=== PATIENT | female | born 1985 | race American Indian/Alaskan Native ===

== ENCOUNTER 2019-03-14 15:18 | Emergency (ER) | payer OTHER ==
--- NOTE | 2019-03-14 16:13 | Emergency Department Report ---
Blank Doc - Documentation Documentation: Abdominal pain with nausea and vomiting x2 days Positive bloody diarrhea x 3 t aubrey. Vomity 8 times today. Pain located mid abdomen. LMP 03/07/2019. Followed by Dr. Bonilla [facility]. No medication. reports QUEZADA . No other symptoms. No sob No CP No urinary burning, frequency or urgency. No vaginal discharge. BP 209/108 and takes lisinopril and HCTZ . Took today Labs, repeat BP
[2019-03-14 16:43] LABS: Basophils # (Auto) 0.1 K/mm3 (0.0-0.1); Basophils % (Auto) 0.4 % (0.0-1.8); Eosinophils % (Auto) 0.2 % (0.0-4.3); Hematocrit 35.1 % (30.3-42.9); Hemoglobin 11.4 gm/dl (10.1-14.3); Lymphocytes # (Auto) 1.3 K/mm3 (1.2-5.4); Lymphocytes % (Auto) 9.4 % (13.4-35.0); Mean Corpuscular HGB Conc 32 % (30-34); Mean Corpuscular Volume 76 fl (79-97); Monocytes # (Auto) 0.4 K/mm3 (0.0-0.8); Monocytes % (Auto) 3.3 % (0.0-7.3); Platelet Count 299 K/mm3 (140-440); Red Cell Distribution Width 18.6 % (13.2-15.2)
[2019-03-14 17:02] LABS: Alanine Aminotransferase 22 units/L (7-56); Albumin 4.3 g/dL (3.9-5); BUN/Creatinine Ratio 10; Blood Urea Nitrogen 6 mg/dL (7-17); Calcium 8.8 mg/dL (8.4-10.2); Hemolysis Index 3
[2019-03-14 17:08] LABS: HCG Qualitative,Urine Negative (Negative)
[2019-03-14 17:13] LABS: Bilirubin,Urine NEG (Negative); Blood,Urine NEG (Negative); Color,Urine Yellow (Yellow); Mucus,Urine 3+ /HPF; Protein,Urine <15 mg/dL mg/dL (Negative); Urobilinogen,Urine < 2.0 mg/dL (<2.0)
[2019-03-14] MEDS ORDERED: ZOFRAN ONE (17:41)
[2019-03-14] MEDS ORDERED: MORPHINE ONE (17:41)
[2019-03-14] MEDS ORDERED: MORPHINE IV ONE (17:52)
[2019-03-14] MEDS ORDERED: ZOFRAN IV ONE ×2 (17:52→20:19)
[2019-03-14] MEDS ORDERED: NACL 0.9% 1000 ML 1,000 ML IV ONE (18:07)
--- NOTE | 2019-03-14 18:11 | Emergency Department Report ---
ED Abdominal Pain HPI - General Chief Complaint: Abdominal Pain Stated Complaint: NAUSEA/VOMITING Time Seen by Provider: 03/14/19 16:07 Source: patient Mode of arrival: Ambulatory Limitations: No Limitations - History of Present Illness Initial Comments: Patient is a 33-year-old female who presents to the emergency room with complaints of upper abdominal pain that began 2 days ago. She states she has associated nausea, vomiting, diarrhea. She states she hasn't been able to tolerate solids or liquids. She denies any urinary symptoms or fever. She states she has noticed bright red blood when she wipes. States she has a history of hemorrhoids. She has a past medical history of Crohn's and states she has not taken her medications in 2 weeks. States her GI doctor is Dr. Bonilla but has not seen her doctor in 2 months. she has a past medical history of HTN states she took lisinopril, HCTZ, carvedilol today. Last menstrual cycle March 07. Severity scale (0 -10): 8 - Related Data Previous Rx's Medication Instructions Recorded Last Taken Type Hydrocortisone [Anucort-HC SUPPOS] 25 mg RC BID #10 supp.rect 03/14/19 Unknown Rx Hydrocortisone [Anusol-Hc 2.5% TOP 1 applicatio RC BID #1 cream..g. 03/14/19 Unknown Rx CREAM] Ondansetron [Zofran Odt] 4 mg PO Q8HR PRN #14 tab.rapdis 03/14/19 Unknown Rx Prednisone [predniSONE 10 mg 10 mg PO .TAPER #1 tab.ds.pk 03/14/19 Unknown Rx (6-Day Pack, 21 Tabs)] metroNIDAZOLE [Flagyl] 500 mg PO BID 10 Days #20 tab 03/14/19 Unknown Rx traMADol [Ultram 50 MG tab] 50 mg PO Q6HR PRN #10 tablet 03/14/19 Unknown Rx Allergies Allergy/AdvReac Type Severity Reaction Status Date / Time No Known Allergies Allergy Verified 03/14/19 15:21 ED Review of Systems ROS: Stated complaint: NAUSEA/VOMITING Other details as noted in HPI Comment: All other systems reviewed and negative ED Past Medical Hx - Past Medical History Previous Medical History?: Yes Hx Hypertension: Yes Additional medical history: crohns - Surgical History Past Surgical History?: No - Social History Smoking Status: Never Smoker - Medications Home Medications: Home Medications Medication Instructions Recorded Confirmed Last Taken Type Hydrocortisone [Anucort-HC SUPPOS] 25 mg RC BID #10 supp.rect 03/14/19 Unknown Rx Hydrocortisone [Anusol-Hc 2.5% TOP 1 applicatio RC BID #1 cream..g. 03/14/19 Unknown Rx CREAM] Ondansetron [Zofran Odt] 4 mg PO Q8HR PRN #14 tab.rapdis 03/14/19 Unknown Rx Prednisone [predniSONE 10 mg 10 mg PO .TAPER #1 tab.ds.pk 03/14/19 Unknown Rx (6-Day Pack, 21 Tabs)] metroNIDAZOLE [Flagyl] 500 mg PO BID 10 Days #20 tab 03/14/19 Unknown Rx traMADol [Ultram 50 MG tab] 50 mg PO Q6HR PRN #10 tablet 03/14/19 Unknown Rx ED Physical Exam - General Limitations: No Limitations General appearance: alert, in no apparent distress - Head Head exam: Present: atraumatic, normocephalic - Eye Eye exam: Present: normal appearance, PERRL - ENT ENT exam: Present: mucous membranes dry (mildly) - Respiratory Respiratory exam: Present: normal lung sounds bilaterally. Absent: respiratory distress, wheezes, rales, rhonchi, stridor, chest wall tenderness, accessory muscle use, decreased breath sounds, prolonged expiratory - Cardiovascular Cardiovascular Exam: Present: regular rate, normal rhythm, normal heart sounds. Absent: systolic murmur, diastolic murmur, rubs, gallop - GI/Abdominal GI/Abdominal exam: Present: soft, tenderness (generalized upper abdominal tenderness), normal bowel sounds. 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 Absent: mass, tenderness - Back Exam Back exam: Absent: CVA tenderness (R), CVA tenderness (L) - Neurological Exam Neurological exam: Present: alert, oriented X3 - Psychiatric Psychiatric exam: Present: normal affect, normal mood - Skin Skin exam: Present: warm, dry, intact ED Course Vital Signs 07/05/19 07/05/19 15:57 21:26 Temperature 98 F 98.1 F Pulse Rate 58 L 54 L Respiratory 22 18 Rate Blood Pressure 209/100 Blood Pressure 108/72 [Left] O2 Sat by Pulse 100 100 Oximetry ED Medical Decision Making - Lab Data Result diagrams: 03/14/19 16:22 03/14/19 16:22 - Radiology Data Radiology results: report reviewed CT abdomen pelvis w con INDICATION / CLINICAL INFORMATION: Abdominal pain with nausea and vomiting. TECHNIQUE: The patient received 100 cc Omnipaque [address] scans at this location are performed using CT dose reduction for ALARA by means of automated exposure control. COMPARISON: None available. FINDINGS: ABDOMEN: There is mild to moderate bowel wall and fold thickening involving the proximal to mid jejunum. These loops are slightly dilated. The patient vomited during the study. Delayed images demonstrate that these loops are more normal in appearance. The remainder of the small bowel is normal. I see no evidence of free air. The liver, spleen, gallbladder, bile ducts, pancreas, adrenal glands and kidneys are normal. The lung bases are clear. PELVIS: The distal ureters and urinary bladder are normal. The uterus and adnexal regions are unremarkable. A normal appendix is present and there is no evidence of diverticulitis. I do not stacy ntify a hernia. No osseous abnormality is seen. IMPRESSION: Abnormal appearance of the proximal jejunum on the initial scan which improves on delayed images after the patient vomited. The findings are probably related to enteritis. Signer Name: Raul Goode MD Signed: 03/14/2019 7:58 PM Workstation Name: [id number] Transcribed By: RT Dictated By: Raul Goode MD Electronically Authenticated By: Raul Goode MD Signed Date/Time: 03/14/191957 - Medical Decision Making Patient is a 33-year-old female who presents to the emergency room with complaints of upper abdominal pain that began 2 days ago. She states she has associated nausea, vomiting, diarrhea. She states she hasn't been able to tolerate solids or liquids. She denies any urinary symptoms or fever. She states she has noticed bright red blood when she wipes. States she has a history of hemorrhoids. She has a past medical history of Crohn's and states she has not taken her medications in 2 weeks. States her GI doctor is Dr. Bonilla but has not seen her doctor in 2 months. she has a past medical history of HTN states she took lisinopril, HCTZ, carvedilol today. Last menstrual cycle March 07. initial vitals with elevated blood pressure, repeat significantly improved. labs with elevated WBC at 13,000. UA is normal. on exam: generalized upper abd TTP, no guarding, no rebound, no peritoneal signs, normal bowel sounds. CT abd pelvis shows Abnormal appearance of the proximal jejunum on the initial scan which improves on delayed images after the patient vomited. The findings are probably related to enteritis. pt was able to tolerate liquid intake while in the ED. rectal exam with external hemorrhoid, no active bleed ing, hemoccult negative. H/H are normal. pt given prescriptions for flagyl, prednisone, zofran, tramadol, anusol. advised to please take medication as prescribed. Drink plenty of water and eat a bland diet. Do not drive or operate heavy machinery while taking pain medication. Follow-up with your GI doctor or the GI doctor listed below in the next 2-3 days. Follow up with a primary care doctor in the next 2-3 days and also discussed the elevation in your blood pressure. Return to the emergency room for any new or worsening symptoms. - Differential Diagnosis crohns flare, obstruction, fistula, colitis, enteritis Critical care attestation.: If time is entered above; I have spent that time in minutes in the direct care of this critically ill patient, excluding procedure time. ED Disposition Clinical Impression: Enteritis, Nausea vomiting and diarrhea Abdominal pain Qualifiers: Abdominal location: upper abdomen, unspecified Qualified Code(s): R10.10 - Upper abdominal pain, unspecified Hemorrhoid Qualifiers: Hemorrhoid type: unspecified Qualified Code(s): K64.9 - Unspecified hemorrhoids Disposition: DC-01 TO HOME OR SELFCARE Is pt being admited?: No Does the pt Need Aspirin: No Condition: Stable Instructions: Hemorrhoids (ED), Crohn Disease (ED), Abdominal Pain (ED) Additional Instructions: Please take medication as prescribed. Drink plenty of water and eat a bland diet. Do not drive or operate heavy machinery while taking pain medication. Follow-up with your GI doctor or the GI doctor listed below in the next 2-3 days. Follow up with a primary care doctor in the next 2-3 days and also discussed the elevation in your blood pressure. Return to the emergency room for any new or worsening symptoms. Prescriptions: Hydrocortisone [Anucort-HC SUPPOS] 25 mg RC BID #10 supp.rect Hydrocortisone [Anusol-Hc 2.5% TOP CREAM] 1 applicatio RC BID #1 cream..g. metroNIDAZOLE [Flagyl] 500 mg PO BID 10 Days #20 tab Prednisone [predniSONE 10 mg (6-Day Pack, 21 Tabs)] 10 mg PO .TAPER #1 tab.ds.pk traMADol [Ultram 50 MG tab] 50 mg PO Q6HR PRN #10 tablet PRN Reason: Pain , Severe (7-10) Ondansetron [Zofran Odt] 4 mg PO Q8HR PRN #14 tab.rapdis PRN Reason: Nausea And Vomiting Referrals: LEANNE GUERRERO MD [Primary Care Provider] - 2-3 Days [facility] [Provider Group] - 2-3 Days Time of Disposition: 20:23 Print Language: MOZAMBICAN
[2019-03-14] MEDS ORDERED: BENADRYL IV ONE (18:26)
[2019-03-14] MEDS ORDERED: REGLAN IV ONE (18:26)
[2019-03-14] MEDS ORDERED: REGLAN ONE (18:30)
[2019-03-14] MEDS ORDERED: BENADRYL ONE (18:30)
--- NOTE | 2019-03-14 20:02 | Cat Scan Report ---
CT abdomen pelvis w con INDICATION / CLINICAL INFORMATION: Abdominal pain with nausea and vomiting. TECHNIQUE: The patient received 100 cc Omnipaque [address] scans at this location are performed using CT dose reduction for ALARA by means of automated exposure control. COMPARISON: None available. FINDINGS: ABDOMEN: There is mild to moderate bowel wall and fold thickening involving the proximal to mid jejun um. These loops are slightly dilated. The patient vomited during the study. Delayed images demonstrat e that these loops are more normal in appearance. The remainder of the small bowel is normal. I see n o evidence of free air. The liver, spleen, gallbladder, bile ducts, pancreas, adrenal glands and kidn eys are normal. The lung bases are clear. PELVIS: The distal ureters and urinary bladder are normal. The uterus and adnexal regions are unremar kable. A normal appendix is present and there is no evidence of diverticulitis. I do not identify a h ernia. No osseous abnormality is seen. IMPRESSION: Abnormal appearance of the proximal jejunum on the initial scan which improves on delayed images after the patient vomited. The findings are probably related to enteritis. Signer Name: Raul Goode MD Signed: 03/14/2019 7:58 PM Workstation Name: [id number]
[2019-03-14 21:27] VITALS: BP 108/72
== END 2019-03-14 21:33 | disposition home or self-care (01) ==
LOC: ED 15:18
DX: K52.9 Noninfective gastroenteritis and colitis, unspecified (principal); K64.9 Unspecified hemorrhoids; I10 Essential (primary) hypertension
CPT/HCPCS: 36415; 74177; 80053; 81001; 81025; 82271; 83690; 85025; 96361; 96374; 96375; 96376; 99284; J1200; J2270; J2405; J2765; J7030; Q9967

== ENCOUNTER 2019-03-23 04:31 | Emergency (ER) | payer OTHER ==
[2019-03-23 04:37] VITALS: BP 172/101
[2019-03-23] MEDS ORDERED: TYLENOL PO ONE (05:39)
[2019-03-23] MEDS ORDERED: PYRIDIUM PO ONE (05:39)
--- NOTE | 2019-03-23 06:38 | Emergency Department Report ---
ED Female HPI - General Chief complaint: Urogenital-Female Stated complaint: BLOOD IN URINE/PAIN Source: patient Mode of arrival: Ambulatory Limitations: No Limitations - History of Present Illness Initial comments: Patient is a 32-year-old -[place] female with no past medical history who presents to the ED with complaint of acute onset persistent suprapubic pressure, dysuria, urinary frequency and urgency, hematuria, low back pain, nausea for the last 2 days, worse in the last 6 hours. Patient denies fever, chills, dizziness, diarrhea, vaginal bleeding, but no discharge, chest pain or shortness of breath. MD Complaint: dysuria, pelvic pain (pressure), other (Urinary urgency and frequency) -: Sudden, days(s) (2) Location: suprapubic Radiation: non-radiating Severity: severe Severity scale (0 -10): 7 Quality: cramping, dull, burning Consistency: constant Improves with: none Worsens with: urination Are you Now?: No Last Menstrual Period: 03/13/19 EDC: 12/18/19 Associated Symptoms: denies other symptoms, abdominal pain, nausea/vomiting, dysuria, hematuria. denies: vaginal discharge, vaginal bleeding, fever/chills, headaches, loss of appetite, rash, seizure, shortness of breath, syncope, weakn ess, other - Related Data Sexually active: Yes : 3 Para: 2 A: 1 Previous Rx's Medication Instructions Recorded Last Taken Type Hydrocortisone [Anucort-HC SUPPOS] 25 mg RC BID #10 supp.rect 03/14/19 Unknown Rx Hydrocortisone [Anusol-Hc 2.5% TOP 1 applicatio RC BID #1 cream..g. 03/14/19 Unknown Rx CREAM] Prednisone [predniSONE 10 mg 10 mg PO .TAPER #1 tab.ds.pk 03/14/19 Unknown Rx (6-Day Pack, 21 Tabs)] metroNIDAZOLE [Flagyl] 500 mg PO BID 10 Days #20 tab 03/14/19 Unknown Rx traMADol [Ultram 50 MG tab] 50 mg PO Q6HR PRN #10 tablet 03/14/19 Unknown Rx Ibuprofen [Motrin] 800 mg PO Q8HR PRN #20 tablet 03/23/19 Unknown Rx Ondansetron [Zofran ODT TAB] 4 mg PO Q6HR PRN #15 tab.rapdis 03/23/19 Unknown Rx Phenazopyridine [Pyridium] 200 mg PO Q8H PRN #21 tab 03/23/19 Unknown Rx cephALEXin [Keflex] 500 mg PO Q6HR #40 capsule 03/23/19 Unknown Rx Allergies Allergy/AdvReac Type Severity Reaction Status Date / Time No Known Allergies Allergy Verified 03/14/19 15:21 ED Review of Systems ROS: Stated complaint: BLOOD IN URINE/PAIN Other details as noted in HPI Constitutional: denies: chills, fever Eyes: denies: eye pain, eye discharge, vision change ENT: denies: ear pain, throat pain Respiratory: denies: cough, shortness of breath, wheezing Cardiovascular: denies: chest pain, palpitations Endocrine: no symptoms reported Gastrointestinal: abdominal pain, nausea, vomiting. denies: diarrhea Genitourinary: urgency, dysuria, frequency, hematuria. denies: discharge, abnormal menses, dyspareunia Musculoskeletal: back pain. denies: joint swelling, arthralgia Skin: denies: rash, lesions Neurological: denies: headache, weakness, paresthesias Psychiatric: denies: anxiety, depression Hematological/Lymphatic: denies: easy bleeding, easy bruising ED Past Medical Hx - Past Medical History Previous Medical History?: Yes Hx Hypertension: Yes Additional medical history: crohns - Surgical History Past Surgical History?: No - Social History Smoking Status: Current Every Day Smoker Substance Use Type: None - Medications Home Medications: Home Medications Medication Instructions Recorded Confirmed Last Taken Type Hydrocortisone [Anucort-HC SUPPOS] 25 mg RC BID #10 supp.rect 03/14/19 Unknown Rx Hydrocortisone [Anusol-Hc 2.5% TOP 1 applicatio RC BID #1 cream..g. 03/14/19 Unknown Rx CREAM] Prednisone [predniSONE 10 mg 10 mg PO .TAPER #1 tab.ds.pk 03/14/19 Unknown Rx (6-Day Pack, 21 Tabs)] metroNIDAZOLE [Flagyl] 500 mg PO BID 10 Days #20 tab 03/14/19 Unknown Rx traMADol [Ultram 50 MG tab] 50 mg PO Q6HR PRN #10 tablet 03/14/19 Unknown Rx Ibuprofen [Motrin] 800 mg PO Q8HR PRN #20 tablet 03/23/19 Unknown Rx Ondansetron [Zofran ODT TAB] 4 mg PO Q6HR PRN #15 tab.rapdis 03/23/19 Unknown Rx Phenazopyridine [Pyridium] 200 mg PO Q8H PRN #21 tab 03/23/19 Unknown Rx cephALEXin [Keflex] 500 mg PO Q6HR #40 capsule 03/23/19 Unknown Rx ED Physical Exam - General Limitations: No Limitations General appearance: alert, in no apparent distress - Head Head exam: Present: atraumatic, normocephalic, normal inspection - Eye Eye exam: Present: normal appearance, PERRL, EOMI. Absent: scleral icterus Pupils: Present: normal accommodation - ENT ENT exam: Present: normal exam, normal orophraynx, mucous membranes moist, TM's normal bilaterally, normal external ear exam - Neck Neck exam: Present: normal inspection, full ROM - Respiratory Respiratory exam: Present: normal lung sounds bilaterally. Absent: respiratory distress, wheezes, rales, chest wall tenderness, accessory muscle use, decreased breath sounds, prolonged expiratory - Cardiovascular Cardiovascular Exam: Present: regular rate, normal rhythm, normal heart sounds. Absent: systolic murmur, diastolic murmur, rubs, gallop - GI/Abdominal GI/Abdominal exam: Present: soft, normal bowel sounds. Absent: distended, tenderness, guarding, rebound, hyperactive bowel sounds, hypoactive bowel sounds, organomegaly - Rectal Rectal exam: Present: deferred - Extremities Exam Extremities exam: Present: normal inspection, full ROM, normal capillary refill - Back Exam Back exam: Present: normal inspection, full ROM. Absent: tenderness, CVA tenderness (R), CVA tenderness (L), muscle spasm - Neurological Exam Neurological exam: Present: alert, oriented X3, CN II-XII intact, normal gait, reflexes normal - Psychiatric Psychiatric exam: Present: normal affect, normal mood - Skin Skin exam: Present: warm, dry, intact, normal color. Absent: rash ED Course Vital Signs 03/23/19 03/23/19 03/23/19 04:32 04:34 06:05 Temperature 97.8 F 97.8 F Pulse Rate 92 H 94 H Respiratory 18 20 Rate Blood Pressure 172/101 172/101 O2 Sat by Pulse 100 Oximetry - Reevaluation(s) Reevaluation #1: 03/23/19 06:37 Patient is alert and oriented 3 and is not in any distress with normal vital signs. Urinalysis was ordered and patient treated for dysuria and pain. Urinalysis shows significant acute urinary tract infection with hematuria. Patient was treated in the ED and Rocephin 1 g intramuscular injection, and discharged home in antibiotics Keflex, and the medications and patient advised to follow-up with [facility]ESSEL INSPECTOR physician or primary care physician in 7-10 days for reevaluation. Patient otherwise return to the ED immediately if symptoms get worse. ED Medical Decision Making - Medical Decision Making Patient is alert and oriented 3 and is not in any distress with normal vital signs. Urinalysis was ordered and patient treated for dysuria and pain. Urinalysis shows significant acute urinary tract infection with hematuria. Patient was treated in the ED and Rocephin 1 g intramuscular injection, and discharged home in antibiotics Keflex, and the medications and patient advised to follow-up with PRESSURE VESSEL INSPECTOR physician or primary care physician in 7-10 days for reevaluation. Patient otherwise return to the ED immediately if symptoms get worse. - Differential Diagnosis acute UTI; Acuet PID, Kidney stones, Ovarian Cysts, Critical care attestation.: If time is entered above; I have spent that time in minutes in the direct care of this critically ill patient, excluding procedure time. ED Disposition Clinical Impression: Acute urinary tract infection Abdominal pain Qualifiers: Abdominal location: lower abdomen, unspecified Qualified Code(s): R10.30 - Lower abdominal pain, unspecified Disposition: - TO HOME OR SELFCARE Is pt being admited?: No Does the pt Need Aspirin: No Condition: Stable Instructions: Urinary Tract Infection in Women (ED), Abdominal Pain (ED) Additional Instructions: Take medications with food, drink plenty of fluids and follow-up with your primary care physician or PRESSURE VESSEL INSPECTOR physician in 7-10 days for reevaluation. Return to the ED immediately if symptoms get worse. Prescriptions: cephALEXin [Keflex] 500 mg PO Q6HR #40 capsule Ibuprofen [Motrin] 800 mg PO Q8HR PRN #20 tablet PRN Reason: Pain , Severe (7-10) Phenazopyridine [Pyridium] 200 mg PO Q8H PRN #21 tab PRN Reason: dysuria Ondansetron [Zofran ODT TAB] 4 mg PO Q6HR PRN #15 tab.rapdis PRN Reason: Nausea And Vomiting Referrals: [facility] [Outside] - 3-5 Days Time of Disposition: 06:39 Print Language: MARTINIQUAIS
[2019-03-23 06:52] LABS: Bilirubin,Urine NEG (Negative); Blood,Urine LG (Negative); Color,Urine Yellow (Yellow); Urobilinogen,Urine < 2.0 mg/dL (<2.0)
[2019-03-23 06:53] LABS: Bacteria,Urine 1+ /HPF (Negative)
[2019-03-23 06:55] LABS: HCG Qualitative,Urine Negative (Negative)
[2019-03-23 06:58] LABS: RBC,Urine > 182.0 /HPF (0.0-6.0); WBC,Urine > 182.0 /HPF (0.0-6.0)
[2019-03-23] MEDS ORDERED: XYLOCAINE 1% MPF 5 mL INFILTRATI ONE (06:59)
[2019-03-23] MEDS ORDERED: ROCEPHIN IM ONE (06:59)
== END 2019-03-23 07:37 | disposition home or self-care (01) ==
LOC: ED 04:31
DX: N39.0 Urinary tract infection, site not specified (principal); I10 Essential (primary) hypertension; F17.200 Nicotine dependence, unspecified, uncomplicated; Z87.19 Personal history of other diseases of the digestive system; Z79.899 Other long term (current) drug therapy
CPT/HCPCS: 81001; 81025; 96372; 99283; J0696

== ENCOUNTER 2019-08-04 13:38 | Inpatient (IN) | payer OTHER ==
[2019-08-04] MEDS ORDERED: ONDANSETRON 4 MG ODT TAB PO ONE (14:17)
--- NOTE | 2019-08-04 14:17 | Event Note ---
ED Screening Note ED Screening Note: PMHx Zurdo has a GI doctor at [facility] states that she N/V/D that began yesterday no fever LNMP: 08/02/19 no other PMHx no allergies to meds This initial assessment/diagnostic orders/clinical plan/treatment(s) is/are subject to change based on patients health status, clinical progression and re-assessment by fellow clinical providers in the ED. Further treatment and workup at subsequent clinical providers discretion. Patient/guardian urged not to elope from the ED as their condition may be serious if not clinically assessed and managed. Initial orders include: UA, labs
[2019-08-04] MEDS ORDERED: ONDANSETRON 4 MG ODT TAB ONE (14:20)
[2019-08-04] MEDS ORDERED: SODIUM CHLORIDE 0.9% 1000 ML 1,000 ML IV ONE ×2 (14:55→19:38)
[2019-08-04] MEDS ORDERED: ONDANSETRON 4 MG/2 ML INJ IV ONE ×2 (14:55→19:38)
[2019-08-04] MEDS ORDERED: MORPHINE 4 MG/1 ML INJ IV ONE (14:55)
[2019-08-04] MEDS ORDERED: methylPREDNISolone Sod Succinate 125 MG/2 ML INJ IV ONE (14:56)
[2019-08-04 15:09] LABS: Mucus,Urine FEW /HPF; WBC,Urine < 1.0 /HPF (0.0-6.0)
[2019-08-04 15:17] LABS: Color,Urine Yellow (Yellow)
[2019-08-04 15:18] LABS: Blood,Urine Moderate (Negative); PH,Urine 7.5 (5.0-7.0); Urobilinogen,Urine < 2.0 mg/dL (<2.0)
[2019-08-04 15:19] LABS: Ictotest,Urine Negative (Negative)
[2019-08-04 15:21] LABS: Alanine Aminotransferase 17 units/L (7-56); Albumin 4.7 g/dL (3.9-5); BUN/Creatinine Ratio 10; Blood Urea Nitrogen 6 mg/dL (7-17); Calcium 9.1 mg/dL (8.4-10.2); Hemolysis Index 2
--- NOTE | 2019-08-04 15:26 | Emergency Department Report ---
ED Abdominal Pain HPI - General Chief Complaint: Abdominal Pain Stated Complaint: VOMIT/CHROME DISEASE Time Seen by Provider: 08/04/19 14:15 Source: patient Mode of arrival: Ambulatory Limitations: No Limitations - History of Present Illness Initial Comments: Patient is 33 years old female with history of Crohn's disease presented to the ER complaining off and diffuse abdominal pain for the last 3 days. Patient described pain as crampy in nature. Patient denied fever or chills. Patient stated that she is unable to keep anything down. Patient is also complaining off and diarrhea but denied any hematochezia or melena. Patient stated that her symptoms is similar to her previous Crohn's flareup. MD Complaint: abdominal pain -: days(s) (3) Location: diffuse Radiation: none Migration to: no migration Severity: moderate Severity scale (0 -10): 4 Quality: cramping - Related Data Previous Rx's Medication Instructions Recorded Last Taken Type Hydrocortisone [Anucort-HC SUPPOS] 25 mg RC BID #10 supp.rect 03/14/19 Unknown Rx Hydrocortisone [Anusol-Hc 2.5% TOP 1 applicatio RC BID #1 cream..g. 03/14/19 Unknown Rx CREAM] Prednisone [predniSONE 10 mg 10 mg PO .TAPER #1 tab.ds.pk 03/14/19 Unknown Rx (6-Day Pack, 21 Tabs)] metroNIDAZOLE [Flagyl] 500 mg PO BID 10 Days #20 tab 03/14/19 Unknown Rx traMADoL [Ultram 50 MG tab] 50 mg PO Q6HR PRN #10 tablet 03/14/19 Unknown Rx Ibuprofen [Motrin] 800 mg PO Q8HR PRN #20 tablet 03/23/19 Unknown Rx Ondansetron [Zofran ODT TAB] 4 mg PO Q6HR PRN #15 tab.rapdis 03/23/19 Unknown Rx Phenazopyridine [Pyridium] 200 mg PO Q8H PRN #21 tab 03/23/19 Unknown Rx cephALEXin [Keflex] 500 mg PO Q6HR #40 capsule 03/23/19 Unknown Rx Allergies Allergy/AdvReac Type Severity Reaction Status Date / Time No Known Allergies Allergy Verified 03/14/19 15:21 ED Review of Systems ROS: Stated complaint: VOMIT/CHROME DISEASE Other details as noted in HPI Comment: All other systems reviewed and negative Constitutional: denies: chills, fever Respiratory: denies: shortness of breath Cardiovascular: denies: chest pain Gastrointestinal: abdominal pain, nausea, vomiting, diarrhea. denies: constipation, hematemesis, melena, hematochezia Neurological: denies: headache ED Past Medical Hx - Past Medical History Previous Medical History?: Yes Hx Hypertension: Yes Additional medical history: crohns - Surgical History Past Surgical History?: No - Social History Smoking Status: Never Smoker Substance Use Type: Alcohol - Medications Home Medications: Home Medications Medication Instructions Recorded Confirmed Last Taken Type Hydrocortisone [Anucort-HC SUPPOS] 25 mg RC BID #10 supp.rect 03/14/19 Unknown Rx Hydrocortisone [Anusol-Hc 2.5% TOP 1 applicatio RC BID #1 cream..g. 03/14/19 Unknown Rx CREAM] Prednisone [predniSONE 10 mg 10 mg PO .TAPER #1 tab.ds.pk 03/14/19 Unknown Rx (6-Day Pack, 21 Tabs)] metroNIDAZOLE [Flagyl] 500 mg PO BID 10 Days #20 tab 03/14/19 Unknown Rx traMADoL [Ultram 50 MG tab] 50 mg PO Q6HR PRN #10 tablet 03/14/19 Unknown Rx Ibuprofen [Motrin] 800 mg PO Q8HR PRN #20 tablet 03/23/19 Unknown Rx Ondansetron [Zofran ODT TAB] 4 mg PO Q6HR PRN #15 tab.rapdis 03/23/19 Unknown Rx Phenazopyridine [Pyridium] 200 mg PO Q8H PRN #21 tab 03/23/19 Unknown Rx cephALEXin [Keflex] 500 mg PO Q6HR #40 capsule 03/23/19 Unknown Rx ED Physical Exam - General Limitations: No Limitations General appearance: alert - Head Head exam: Present: atraumatic - ENT ENT exam: Present: normal exam - Neck Neck exam: Present: normal inspection - Respiratory Respiratory exam: Present: normal lung sounds bilaterally - Cardiovascular Cardiovascular Exam: Present: regular rate, normal rhythm, normal heart sounds - GI/Abdominal GI/Abdominal exam: Present: soft, normal bowel sounds. Absent: distended, tenderness, guarding, rebound, rigid, organomegaly, mass, bruit, pulsatile mass, hernia - Extremities Exam Extremities exam: Present: normal inspection, full ROM, normal capillary refill - Back Exam Back exam: Present: normal inspection, full ROM. Absent: CVA tenderness (R), CVA tenderness (L) - Neurological Exam Neurological exam: Present: alert, oriented X3, CN II-XII intact - Psychiatric Psychiatric exam: Present: normal mood - Skin Skin exam: Present: warm, intact, normal color ED Course Vital Signs 08/04/19 13:42 Temperature 98.7 F Pulse Rate 58 L Respiratory 18 Rate Blood Pressure 184/75 O2 Sat by Pulse 100 Oximetry ED Medical Decision Making - Lab Data Result diagrams: 08/04/19 14:38 08/04/19 14:38 Critical care attestation.: If time is entered above; I have spent that time in minutes in the direct care of this critically ill patient, excluding procedure time. ED Disposition Clinical Impression: Abdominal pain, Crohn disease Disposition: - TO HOME OR SELFCARE Is pt being admited?: No Condition: Stable Instructions: Abdominal Pain (ED), Crohn Disease (ED) Referrals: PRIMARY CARE, [Referring] - 3-5 Days
[2019-08-04 15:37] LABS: Monocytes # (Auto) 0.3 K/mm3 (0.0-0.8); Monocytes % (Auto) 2.8 % (0.0-7.3)
[2019-08-04 15:56] LABS: Basophils % (Auto) 0.3 % (0.0-1.8); Hematocrit 35.6 % (30.3-42.9); Hemoglobin 11.6 gm/dl (10.1-14.3); Lymphocytes # (Auto) 1.8 K/mm3 (1.2-5.4); Lymphocytes % (Auto) 14.8 % (13.4-35.0); Mean Corpuscular HGB Conc 33 % (30-34); Mean Corpuscular Volume 77 fl (79-97); Platelet Count 242 K/mm3 (140-440); Red Blood Count 4.61 M/mm3 (3.65-5.03)
[2019-08-04] MEDS ORDERED: HYDROmorphone 1 MG/1 ML INJ IV ONE ×2 (17:17→19:38)
[2019-08-04] MEDS ORDERED: METOCLOPRAMIDE 10 MG/2 ML INJ IV ONE (17:17)
[2019-08-04] MEDS ORDERED: HYDROmorphone 1 MG/1 ML INJ ONE (17:21)
[2019-08-04] MEDS ORDERED: METOCLOPRAMIDE 10 MG/2 ML INJ ONE (17:21)
--- NOTE | 2019-08-04 18:07 | Cat Scan Report ---
CT scan of the abdomen and pelvis with contrast INDICATION: abdominal pain/history of Crohn's disease. TECHNIQUE: All CT scans at this location are performed using the following dose modulation technique: Automated exposure control. Helical slices were obtained through the abdomen and pelvis following the administr ation of 100 cc of Omnipaque 300 COMPARISON: CT scan dated 03/14/2019 FINDINGS: Abdomen: There is focal fatty infiltration in the liver adjacent to the falciform ligament. There is edema in the gallbladder wall There is fluid and air in the stomach. The spleen, pancreas, adrenal glands, and kidneys are unremark able. The aorta is normal in diameter. There is no obstruction, inflammation, or free air. Pelvis: There is no obstruction or inflammation. There are no abnormal fluid collections. There is a probable fibroid within the uterus. On review of bone windows, no acute osseous abnormalities are seen. IMPRESSION: 1. There is gallbladder wall edema. This is concerning for possible cholecystitis. Nuclear medicine H RJ scan can be obtained to further evaluate. Signer Name: Remy Fritz MD Signed: 08/04/2019 6:02 PM Workstation Name: [id number]
--- NOTE | 2019-08-04 20:19 | Ultrasound Report ---
ULTRASOUND ABDOMEN, LIMITED (RIGHT UPPER QUADRANT) INDICATION: RUQ concern for cholecystitis. COMPARISON: None available. FINDINGS: Pancreas: Visualized portion shows no significant abnormality. Liver: Normal. Gallbladder: Normal. Bile ducts: Normal. Common Bile Duct measures 2.5 mm. Free fluid: None. Additional Findings: None. IMPRESSION: Unremarkable limited abdominal ultrasound. Signer Name: Devon Lim MD Signed: 08/04/2019 8:15 PM Workstation Name: [id number]
[2019-08-04] MEDS ORDERED: KETOROLAC 30 MG/1 ML INJ IV ONE (21:03)
[2019-08-04] MEDS ORDERED: KETOROLAC 30 MG/1 ML INJ ONE (21:06)
[2019-08-04] MEDS ORDERED: ONDANSETRON 4 MG/2 ML INJ IV PRN (21:33)
[2019-08-04] MEDS ORDERED: ACETAMINOPHEN 325 MG TAB PO PRN (21:33)
--- NOTE | 2019-08-04 22:04 | History and Physical Report ---
History of Present Illness Date of examination: 08/04/19 Date of admission: 08/04/19 21:33 Chief complaint: Nausea, vomiting, diarrhea with abdominal pain. History of present illness: 33-year-old female with known history of Crohn's disease presenting to the emergency room today complaining of nausea vomiting and abdominal pain. She also indicates that she has had some low-grade fever at home. She had a bout of diarrhea which has resolved Workup in the the emergency room including CT of the abdomen suggestive of cholecystitis. General surgeon has been consulted for evaluation. Past History Past Medical History: hypertension, other (Crohn's disease) Social history: smoking (smokes tobacco occasionally), alcohol abuse (alcohol occasionally), other (uses marijuana occasionally and last use was about a month ago) Family history: other (grandmother had pancreatic cancer, history of gallbladder disease in the family) Medications and Allergies Allergies Allergy/AdvReac Type Severity Reaction Status Date / Time No Known Allergies Allergy Verified 03/14/19 15:21 Home Medications Medication Instructions Recorded Confirmed Last Taken Type Ondansetron [Zofran Odt] 4 mg PO Q8HR PRN #14 tab.rapdis 08/04/19 Unknown Rx Prednisone [predniSONE 10 mg 10 mg PO .TAPER #1 tab.ds.pk 08/04/19 Unknown Rx (6-Day Pack, 21 Tabs)] amLODIPine [Norvasc] 10 mg PO DAILY 08/04/19 08/04/19 Unknown History traMADoL [Ultram 50 MG tab] 50 mg PO Q4HR PRN #14 tablet 08/04/19 Unknown Rx Active Meds: Active Medications Acetaminophen (Tylenol) 650 mg PO Q4H PRN PRN Reason: Pain MILD(1-3)/Fever >100.5/QUEZADA Sodium Chloride (Nacl 0.9% 1000 Ml) 1,000 mls @ 125 mls/hr IV DIRECT MEG Morphine Sulfate (Morphine) 2 mg IV Q4H PRN PRN Reason: Pain, Moderate (4-6) Ondansetron HCl (Zofran) 4 mg IV Q8H PRN PRN Reason: Nausea And Vomiting Sodium Chloride (Sodium Chloride Flush Syringe 10 Ml) 10 ml IV BID MEG Sodium Chloride (Sodium Chloride Flush Syringe 10 Ml) 10 ml IV PRN PRN PRN Reason: LINE FLUSH Review of Systems Gastrointestinal: abdominal pain, nausea, vomiting, diarrhea Exam - Constitutional Vitals: Temp Pulse Resp BP Pulse Ox 98.3 F 58 L 20 189/86 100 08/04/19 19:01 08/04/19 19:01 08/04/19 19:01 08/04/19 19:01 08/04/19 19:01 General appearance: Present: no acute distress, well-nourished - EENT Eyes: Present: PERRL, EOM intact ENT: hearing intact, clear oral mucosa, dentition normal - Neck Neck: Present: supple, normal ROM - Respiratory Respiratory effort: normal Respiratory: bilateral: CTA - Cardiovascular Rhythm: regular Heart Sounds: Present: S1 & S2 - Extremities Extremities: no ischemia, pulses intact, No edema, Full ROM Peripheral Pulses: within normal limits - Abdominal General gastrointestinal: Present: soft, tender (mild right upper quadrant tenderness, no rebound tenderness and no masses) - Integumentary Integumentary: Present: clear, warm, dry - Musculoskeletal Musculoskeletal: strength equal bilaterally - Psychiatric Psychiatric: appropriate mood/affect, intact judgment & insight, cooperative - Neurologic Neurologic: CNII-XII intact, moves all extremities Results - Labs CBC & Chem 7: 08/04/19 14:38 08/04/19 14:38 Labs: Abnormal lab results 08/04/19 08/04/19 08/04/19 Range/Units 14:31 14:38 14:38 WBC 12.1 H (4.5-11.0) K/mm3 MCV 77 L (79-97) fl MCH 25 L (28-32) pg RDW 17.0 H (13.2-15.2) % Seg Neutrophils % 82.0 H (40.0-70.0) % Seg Neutrophils # 9.9 H (1.8-7.7) K/mm3 Carbon Dioxide 21 L (22-30) mmol/L BUN 6 L (7-17) mg/dL Creatinine 0.6 L (0.7-1.2) mg/dL Glucose 118 H (65-100) mg/dL Urine pH 7.5 H (5.0-7.0) Urine Blood Moderate A (Negative) Assessment and Plan - Patient Problems (1) Abdominal pain Current Visit: Yes Status: Acute Plan to address problem: Possibly secondary to cholecystitis. Patient is made nothing by mouth. We will await further evaluation by general surgeon. She is placed on an adjusted medication when necessary. We will also place on empiric IV antibiotics. (2) Crohn disease Current Visit: Yes Status: Acute Plan to address problem: She has history of Crohn's disease. We will appreciate gastroenterology input prior to discharge. (3) DVT prophylaxis Current Visit: Yes Status: Acute Plan to address problem: Patient placed on sequential compression device. (4) Full code status Current Visit: Yes Status: Acute
[2019-08-05] MEDS: MORPHINE 2 MG/1 ML INJ IV PRN ×2 (00:05→17:52)
[2019-08-05] MEDS: SODIUM CHLORIDE 0.9% 1000 ML 1,000 ML IV SCH (05:02)
[2019-08-05] MEDS: KETOROLAC 30 MG/1 ML INJ IV PRN ×3 (05:08→21:28)
[2019-08-05] MEDS ORDERED: PIPERACILLIN/TAZOBACTAM 3.375 3.375 GM/50 ML BAG IV SCH (06:00)
[2019-08-05 06:12] LABS: Hematocrit 34.3 % (30.3-42.9); Lymphocytes # (Auto) 1.2 K/mm3 (1.2-5.4); Lymphocytes % (Auto) 7.4 % (13.4-35.0); Mean Corpuscular HGB Conc 32 % (30-34); Mean Corpuscular Volume 77 fl (79-97); Monocytes # (Auto) 0.8 K/mm3 (0.0-0.8); Monocytes % (Auto) 4.6 % (0.0-7.3); Platelet Count 229 K/mm3 (140-440); Red Blood Count 4.45 M/mm3 (3.65-5.03); Red Cell Distribution Width 16.7 % (13.2-15.2)
[2019-08-05 06:26] LABS: BUN/Creatinine Ratio 13; Blood Urea Nitrogen 9 mg/dL (7-17); Hemolysis Index 1
[2019-08-05 06:33] LABS: INR 1.21 (0.87-1.13)
[2019-08-05 06:35] LABS: Calcium 8.8 mg/dL (8.4-10.2)
[2019-08-05] MEDS ORDERED: hydrALAZINE 20 MG/1 ML INJ IV ONE (07:02)
--- NOTE | 2019-08-05 08:45 | Progress Note ---
Assessment and Plan Assessment and plan: 33-year-old female with known history of colitis disease presenting to the emergency room today complaining of nausea vomiting and abdominal pain. She also indicates that she has had some low-grade fever at home. She had a bout of diarrhea which has resolved. Workup in the the emergency room including CT of the abdomen suggestive of cholecystitis. General surgeon has been consulted for evaluation. Per current information and discussion with GI the patient had a diagnosis of Colitis and not Crohns, also the patient has had chronic nausea with vomiting and has been informed in the past that it is likely due to THC. - Patient Problems (1) Abdominal pain Current Visit: Yes Status: Acute Plan to address problem: Possibly secondary to cholecystitis VS COLITIS flair vs cannobinoid hyperemesis syndrome Patient is made nothing by mouth. We will await further evaluation by general surgeon. She is placed on an adjusted medication when necessary. We will also place on empiric IV antibiotics. GI consulted (2) presume Colitis Current Visit: Yes Status: Acute Plan to address problem: She has history of colitis disease. We will appreciate gastroenterology input prior to discharge. GI consulted Adjust Per antiemetic medications (3) Hypokalemia Replace (4) Leukocytosis No fever, ?reactive. No evidence of sepsis, will monitor ?Secondary to steroids (5) Hypertensive urgency Anticipate improvement with pain control. (6) Bradycardia ?effect of THC, patient is asymptiomatic will monitor (7)DVT prophylaxis Current Visit: Yes Status: Acute Plan to address problem: Patient placed on sequential compression device. (4) Full code status Current Visit: Yes Status: Acute patient will be counselled on Compliance as it relates to THC Anticipate discharge in am if remains stable History Interval history: Patient seen and examined, for some reason she had taken off all her cloths, family member at bedside and I also had Nurse practitioner Sherri ledbetter with me. Patient reports nausea, with vomiting. She reports resolution of her diarrhea and also reports 3/10 abdominal pain around the periumbilical area with no radiation Hospitalist Physical - Physical exam Narrative exam: General appearance: Present: no acute distress, well-nourished - EENT Eyes: Present: PERRL, EOM intact ENT: hearing intact, clear oral mucosa, dentition normal - Neck Neck: Present: supple, normal ROM - Respiratory Respiratory effort: normal Respiratory: bilateral: CTA - Cardiovascular Rhythm: regular Heart Sounds: Present: S1 & S2 - Extremities Extremities: no ischemia, pulses intact, No edema, Full ROM Peripheral Pulses: within normal limits - Abdominal General gastrointestinal: Present: soft, tender (mild periumblical tenderness no rebound tenderness and no masses) - Integumentary Integumentary: Present: clear, warm, dry - Musculoskeletal Musculoskeletal: strength equal bilaterally - Psychiatric Psychiatric: appropriate mood/affect, intact judgment & insight, cooperative - Neurologic Neurologic: CNII-XII intact, moves all extremities - Constitutional Vitals: Temp Pulse Resp BP Pulse Ox 98.7 F 49 L 20 176/85 100 08/05/19 05:37 08/05/19 07:57 08/05/19 05:37 08/05/19 07:57 08/05/19 05:37 General appearance: Present: no acute distress, well-nourished Results - Labs CBC & Chem 7: 08/05/19 05:52 08/05/19 05:52 Labs: Laboratory Last Values WBC 16.3 K/mm3 (4.5-11.0) H 08/05/19 05:52 RBC 4.45 M/mm3 (3.65-5.03) 08/05/19 05:52 Hgb 11.0 gm/dl (10.1-14.3) 08/05/19 05:52 Hct 34.3 % (30.3-42.9) 08/05/19 05:52 MCV 77 fl (79-97) L 08/05/19 05:52 MCH 25 pg (28-32) L 08/05/19 05:52 MCHC 32 % (30-34) 08/05/19 05:52 RDW 16.7 % (13.2-15.2) H 08/05/19 05:52 Plt Count 229 K/mm3 (140-440) 08/05/19 05:52 Lymph % (Auto) 7.4 % (13.4-35.0) L 08/05/19 05:52 Wayne % (Auto) 4.6 % (0.0-7.3) 08/05/19 05:52 Eos % (Auto) 0.0 % (0.0-4.3) 08/05/19 05:52 Baso % (Auto) 0.0 % (0.0-1.8) 08/05/19 05:52 Lymph # 1.2 K/mm3 (1.2-5.4) 08/05/19 05:52 Wayne # 0.8 K/mm3 (0.0-0.8) 08/05/19 05:52 Eos # 0.0 K/mm3 (0.0-0.4) 08/05/19 05:52 Baso # 0.0 K/mm3 (0.0-0.1) 08/05/19 05:52 Seg Neutrophils % 88.0 % (40.0-70.0) H 08/05/19 05:52 Seg Neutrophils # 14.3 K/mm3 (1.8-7.7) H 08/05/19 05:52 PT 15.2 Sec. (12.2-14.9) H 08/05/19 05:52 INR 1.21 (0.87-1.13) H 08/05/19 05:52 APTT 25.0 Sec. (24.2-36.6) 08/05/19 05:52 Sodium 139 mmol/L (137-145) 08/05/19 05:52 Potassium 3.5 mmol/L (3.6-5.0) L 08/05/19 05:52 Chloride 102.4 mmol/L (98-107) 08/05/19 05:52 Carbon Dioxide 23 mmol/L (22-30) 08/05/19 05:52 Anion Gap 17 mmol/L 08/05/19 05:52 BUN 9 mg/dL (7-17) 08/05/19 05:52 Creatinine 0.7 mg/dL (0.7-1.2) 08/05/19 05:52 Estimated GFR > 60 ml/min 08/05/19 05:52 BUN/Creatinine Ratio 13 % 08/05/19 05:52 Glucose 113 mg/dL (65-100) H 08/05/19 05:52 Calcium 8.8 mg/dL (8.4-10.2) 08/05/19 05:52 Total Bilirubin 0.30 mg/dL (0.1-1.2) 08/04/19 14:38 AST 15 units/L (5-40) 08/04/19 14:38 ALT 17 units/L (7-56) 08/04/19 14:38 Alkaline Phosphatase 52 units/L (35-129) 08/04/19 14:38 Total Protein 7.5 g/dL (6.3-8.2) 08/04/19 14:38 Albumin 4.7 g/dL (3.9-5) 08/04/19 14:38 Albumin/Globulin Ratio 1.7 % 08/04/19 14:38 Lipase 55 units/L (13-60) 08/04/19 14:38 HCG, Qual Negative (Negative) 08/04/19 15:04 Urine Color Yellow (Yellow) 08/04/19 14:31 Urine Turbidity Clear (Clear) 08/04/19 14:31 Urine pH 7.5 (5.0-7.0) H 08/04/19 14:31 Urine Protein 30 mg/dl mg/dL (Negative) 08/04/19 14:31 Urine Glucose (UA) Negative mg/dL (Negative) 08/04/19 14:31 Urine Ketones 40 mg/dL (Negative) 08/04/19 14:31 Urine Blood Moderate (Negative) A 08/04/19 14:31 Urine Nitrite Negative (Negative) 08/04/19 14:31 Ur Reducing Substances Not Reportable 08/04/19 14:31 Urine Ictotest Negative (Negative) 08/04/19 14:31 Urine Urobilinogen < 2.0 mg/dL (<2.0) 08/04/19 14:31 Ur Leukocyte Esterase Negative (Negative) 08/04/19 14:31 Urine WBC (Auto) < 1.0 /HPF (0.0-6.0) 08/04/19 14:31 Urine RBC (Auto) 7.0 /HPF (0.0-6.0) 08/04/19 14:31 U Epithel Cells (Auto) 2.0 /HPF (0-13.0) 08/04/19 14:31 Urine Mucus Few /HPF 08/04/19 14:31 Active Medications - Current Medications Current Medications: Generic Name Dose Route Start Last Admin Trade Name Freq PRN Reason Stop Dose Admin Acetaminophen 650 mg 08/04/19 21:33 Tylenol PO Q4H PRN Pain MILD(1-3)/Fever >100.5/QUEZADA Sodium Chloride 1,000 mls @ 125 mls/hr 08/04/19 22:00 08/05/19 05:02 Nacl 0.9% 1000 Ml IV 125 mls/hr DIRECT MEG Administration Piperacillin Sod/Tazobactam Sod 3.375 gm in 50 mls @ 100 mls/hr 08/05/19 06:00 08/05/19 05:02 Zosyn/Ns 3.375gm/50ml IV 100 mls/hr Q8HR MEG Administration Protocol Ketorolac Tromethamine 30 mg 08/05/19 00:35 08/05/19 05:08 Toradol IV 08/10/19 00:34 30 mg Q6H PRN Administration Pain, Moderate (4-6) Morphine Sulfate 2 mg 08/04/19 21:33 08/05/19 00:05 Morphine IV 2 mg Q4H PRN Administration Pain, Moderate (4-6) Ondansetron HCl 4 mg 08/04/19 21:33 08/05/19 08:29 Zofran IV 4 mg Q8H PRN Administration Nausea And Vomiting Sodium Chloride 10 ml 08/04/19 22:00 08/04/19 22:08 Sodium Chloride Flush Syringe 10 Ml IV 10 ml BID MEG Administration Sodium Chloride 10 ml 08/04/19 21:33 Sodium Chloride Flush Syringe 10 Ml IV PRN PRN LINE FLUSH
--- NOTE | 2019-08-05 10:46 | Gastroenterology Consultation ---
History of Present Illness - Reason for Consult Consult date: 08/05/19 Crohn's disease? Requesting physician: JULIANA GARLAND - History of Present Illness Patient is a 33 y/o female with PMH of HTN and chronic marijuana use who presented to ED with c/o intractable N/V and diffuse abdominal pain. Upon admission, abd CT showed possible cholecystitis to which surgery has been consulted, however abd U/S showed gallbladder normal. HIDA scan pending today for further evaluation. GI has been consulted for a reported hx of Crohn's disease (abd CT showed no bowel inflammation). This morning patient was resting in bed w/o acute distress but ill appearing with 3 episodes of vomiting upon exam (emesis non-bloody). She reports an acute onset of symptoms 2 days ago but states she has had several similar episodes in the past. N/V not correlated with PO intake. No alleviating factors. States she was previously treated at [facility] with antibiotics for "inflammation in her colon" seen by colonoscopy but has never been given a diagnosis of IBD such as Crohn's or UC (never taken medications for IBD). Admits to low-grade fever but denies CP, SOB, signs of bleeding, diarrhea, or constipation. Admits to chronic marijuana use (~1x/week) and states she believes she was told previously during a prior hospitalization for N/V that this could be contributing to her symptoms. No abdominal surgeries. Past History Past Medical History: hypertension Social history: smoking (smokes tobacco occasionally), other (chronic marijuana use, alcohol) Family history: other (grandmother had pancreatic cancer, history of gallbladder disease in the family) Medications and Allergies Allergies Allergy/AdvReac Type Severity Reaction Status Date / Time No Known Allergies Allergy Verified 03/14/19 15:21 Home Medications Medication Instructions Recorded Confirmed Last Taken Type Ondansetron [Zofran Odt] 4 mg PO Q8HR PRN #14 tab.rapdis 08/04/19 Unknown Rx Prednisone [predniSONE 10 mg 10 mg PO .TAPER #1 tab.ds.pk 08/04/19 Unknown Rx (6-Day Pack, 21 Tabs)] amLODIPine [Norvasc] 10 mg PO DAILY 08/04/19 08/04/19 Unknown History traMADoL [Ultram 50 MG tab] 50 mg PO Q4HR PRN #14 tablet 08/04/19 Unknown Rx Active Meds: Active Medications Acetaminophen (Tylenol) 650 mg PO Q4H PRN PRN Reason: Pain MILD(1-3)/Fever >100.5/QUEZADA Sodium Chloride (Nacl 0.9% 1000 Ml) 1,000 mls @ 125 mls/hr IV DIRECT [facility] Last Admin: 08/05/19 05:02 Dose: 125 mls/hr Documented by: Piperacillin Sod/Tazobactam Sod (Zosyn/Ns 3.375gm/50ml) 3.375 gm in 50 mls @ 100 mls/hr IV Q8HR [facility]; Protocol Last Admin: 08/05/19 05:02 Dose: 100 mls/hr Documented by: Potassium Chloride (Kcl 10meq/100ml) 10 meq in 100 mls @ 100 mls/hr IV Q1H [facility] Stop: 08/05/19 13:59 Ketorolac Tromethamine (Toradol) 30 mg IV Q6H PRN PRN Reason: Pain, Moderate (4-6) Stop: 08/10/19 00:34 Last Admin: 08/05/19 05:08 Dose: 30 mg Documented by: Morphine Sulfate (Morphine) 2 mg IV Q4H PRN PRN Reason: Pain, Moderate (4-6) Last Admin: 08/05/19 00:05 Dose: 2 mg Documented by: Ondansetron HCl (Zofran) 4 mg IV Q4H PRN PRN Reason: Nausea And Vomiting Sodium Chloride (Sodium Chloride Flush Syringe 10 Ml) 10 ml IV BID [facility] Last Admin: 08/04/19 22:08 Dose: 10 ml Documented by: Sodium Chloride (Sodium Chloride Flush Syringe 10 Ml) 10 ml IV PRN PRN PRN Reason: LINE FLUSH medications reviewed/updated as required Review of Systems - Review of Systems All systems: negative Gastrointestinal: abdominal pain, nausea, vomiting Exam - Constitutional Vital Signs: Temp Pulse Resp BP Pulse Ox 98.7 F 49 L 20 176/85 100 08/05/19 05:37 08/05/19 07:57 08/05/19 05:37 08/05/19 07:57 08/05/19 05:37 General appearance: no acute distress, other (ill appearing) - EENT Eyes: PERRL, EOM intact ENT: hearing intact - Respiratory Respiratory effort: normal - Cardiovascular Rhythm: regular - Gastrointestinal General gastrointestinal: Present: soft, tender (slight diffuse TTP), non- distended, normal bowel sounds - Neurologic Neurological: alert and oriented x3 - Labs CBC & Chem 7: 08/05/19 05:52 08/05/19 05:52 Lab Results: Laboratory Results - last 24 hr 08/04/19 08/04/19 08/04/19 14:31 14:38 14:38 WBC 12.1 H RBC 4.61 Hgb 11.6 Hct 35.6 MCV 77 L MCH 25 L MCHC 33 RDW 17.0 H Plt Count 242 Lymph % (Auto) 14.8 [place] % (Auto) 2.8 Eos % (Auto) 0.0 Baso % (Auto) 0.3 Lymph # 1.8 [place] # 0.3 Eos # 0.0 Baso # 0.0 Seg Neutrophils % 82.0 H Seg Neutrophils # 9.9 H PT INR APTT Sodium 139 Potassium 3.6 Chloride 100.4 Carbon Dioxide 21 L Anion Gap 21 BUN 6 L Creatinine 0.6 L Estimated GFR > 60 BUN/Creatinine Ratio 10 Glucose 118 H Calcium 9.1 Total Bilirubin 0.30 AST 15 ALT 17 Alkaline Phosphatase 52 Total Protein 7.5 Albumin 4.7 Albumin/Globulin Ratio 1.7 Lipase 55 HCG, Qual Urine Color Yellow Urine Turbidity Clear Urine pH 7.5 H Urine Protein 30 mg/dl Urine Glucose (UA) Negative Urine Ketones 40 Urine Blood Moderate A Urine Nitrite Negative Ur Reducing Substances Not Reportable Urine Ictotest Negative Urine Urobilinogen < 2.0 Ur Leukocyte Esterase Negative Urine WBC (Auto) < 1.0 Urine RBC (Auto) 7.0 U Epithel Cells (Auto) 2.0 Urine Mucus Few 08/04/19 08/05/19 08/05/19 15:04 05:52 05:52 WBC 16.3 H RBC 4.45 Hgb 11.0 Hct 34.3 MCV 77 L MCH 25 L MCHC 32 RDW 16.7 H Plt Count 229 Lymph % (Auto) 7.4 L [place] % (Auto) 4.6 Eos % (Auto) 0.0 Baso % (Auto) 0.0 Lymph # 1.2 [place] # 0.8 Eos # 0.0 Baso # 0.0 Seg Neutrophils % 88.0 H Seg Neutrophils # 14.3 H PT 15.2 H INR 1.21 H APTT 25.0 Sodium Potassium Chloride Carbon Dioxide Anion Gap BUN Creatinine Estimated GFR BUN/Creatinine Ratio Glucose Calcium Total Bilirubin AST ALT Alkaline Phosphatase Total Protein Albumin Albumin/Globulin Ratio Lipase HCG, Qual Negative Urine Color Urine Turbidity Urine pH Urine Protein Urine Glucose (UA) Urine Ketones Urine Blood Urine Nitrite Ur Reducing Substances Urine Ictotest Urine Urobilinogen Ur Leukocyte Esterase Urine WBC (Auto) Urine RBC (Auto) U Epithel Cells (Auto) Urine Mucus 08/05/19 05:52 WBC RBC Hgb Hct MCV MCH MCHC RDW Plt Count Lymph % (Auto) [place] % (Auto) Eos % (Auto) Baso % (Auto) Lymph # [place] # Eos # Baso # Seg Neutrophils % Seg Neutrophils # PT INR APTT Sodium 139 Potassium 3.5 L Chloride 102.4 Carbon Dioxide 23 Anion Gap 17 BUN 9 Creatinine 0.7 Estimated GFR > 60 BUN/Creatinine Ratio 13 Glucose 113 H Calcium 8.8 Total Bilirubin AST ALT Alkaline Phosphatase Total Protein Albumin Albumin/Globulin Ratio Lipase HCG, Qual Urine Color Urine Turbidity Urine pH Urine Protein Urine Glucose (UA) Urine Ketones Urine Blood Urine Nitrite Ur Reducing Substances Urine Ictotest Urine Urobilinogen Ur Leukocyte Esterase Urine WBC (Auto) Urine RBC (Auto) U Epithel Cells (Auto) Urine Mucus Assessment and Plan 1.N/V 2.abdominal pain (diffuse) -afebrile -WBC 16.3 -H/H WNL- no signs of bleeding -LFTs and lipase WNL -abd CT showed possible cholecystitis (no bowel inflammation) -abd U/S- normal -etiology unclear-possible GB disease vs other (chronic marijuana use likely also contributing but doubt IBD given no clinical evidence; pt reports hx of "inflammation in colon" seen during colonoscopy at [facility] that was treated with antibiotics (likely colitis) but was not told she had Crohn's/UC (not on m edications for IBD; previous records currently unavailable) -surgery following with HIDA scan pending for today for further evaluation of GB, if positive will proceed with CCY -if negative, will schedule for EGD to r/o GI pathology -Keep NPO for now -start on PPI -continue antiemetics and antibiotics -limit narcotics for this may exacerbate symptoms -continue supportive care -substance (marijuana) cessation discussed/encouraged with patient -will follow
[2019-08-05] MEDS: POTASSIUM CHLORIDE 10 MEQ 10 MEQ/100 ML BAG IV SCH ×3 (11:25→23:56)
--- NOTE | 2019-08-05 13:51 | Nuclear Medicine Report ---
NUCLEAR MEDICINE HEPATOBILIARY SCAN INDICATION: abdominal pain r/o cholecystitis. TECHNIQUE: Radiotracer: Tc-99m mebrofenin (by IV): mCi. Gallbladder Stimulant: None. FINDINGS: Hepatic activity: Normal. Biliary activity: Normal. Common bile duct activity at 20 minutes. Gallbladder activity: Normal at 10 minutes. Small bowel activity: Normal at 60 minutes. IMPRESSION: No biliary obstruction. Signer Name: Mina Weldon Jr, MD Signed: 08/05/2019 1:46 PM Workstation Name: [id number]
[2019-08-05] MEDS: PANTOPRAZOLE 40 MG INJ IV SCH ×2 (13:59→21:28)
[2019-08-05] MEDS ORDERED: SINCALIDE 5 MCG VIAL IV ONE ×2 (14:29→15:19)
[2019-08-05] MEDS ORDERED: WATER FOR INJ Sterile (PF) 10 ML ONE (14:30)
--- NOTE | 2019-08-05 14:57 | Consultation ---
History of Present Illness Consult date: 08/05/19 Reason for consult: abdominal pain Chief complaint: abdominal pain, n/v - History of present illness History of present illness: 33 yo F with hx of HTN presents to ER with severe sharp, burning epigastric abdominal pain that radiates to the rest of the abdomen. No alleviating or exacerbating factors. Unrelated to certain foods. The patient states she has been suffering from this pain on and off with episodes occurring every 3 months or so. She has had several Ct scans which showed inflammation of the colon for which she was treated with abx. She states she has never had a colonoscopy or formal diagnosis of inflammatory bowel disease. Crohns disease was suggested by ER providers. She has been having n/v - yellow emesis without hematemesis. She is passing flatus and having BMs without hematochezia or melena. No f/c, cp, sob. Past History Past Medical History: hypertension Past Surgical History: No surgical history Social history: smoking (smokes tobacco occasionally), other (chronic marijuana use, alcohol). denies: IV drug use Family history: other (grandmother had pancreatic cancer, history of gallbladder disease in the family) Medications and Allergies Allergies Allergy/AdvReac Type Severity Reaction Status Date / Time No Known Allergies Allergy Verified 03/14/19 15:21 Home Medications Medication Instructions Recorded Confirmed Last Taken Type Ondansetron [Zofran Odt] 4 mg PO Q8HR PRN #14 tab.rapdis 08/04/19 Unknown Rx Prednisone [predniSONE 10 mg 10 mg PO .TAPER #1 tab.ds.pk 08/04/19 Unknown Rx (6-Day Pack, 21 Tabs)] amLODIPine [Norvasc] 10 mg PO DAILY 08/04/19 08/04/19 Unknown History traMADoL [Ultram 50 MG tab] 50 mg PO Q4HR PRN #14 tablet 08/04/19 Unknown Rx Active Meds: Active Medications Acetaminophen (Tylenol) 650 mg PO Q4H PRN PRN Reason: Pain MILD(1-3)/Fever >100.5/QUEZADA Sodium Chloride (Nacl 0.9% 1000 Ml) 1,000 mls @ 125 mls/hr IV DIRECT [facility] Last Admin: 08/05/19 05:02 Dose: 125 mls/hr Documented by: Piperacillin Sod/Tazobactam Sod (Zosyn/Ns 4.5gm/100ml) 4.5 gm in 100 mls @ 200 mls/hr IV Q8HR [facility] Ketorolac Tromethamine (Toradol) 30 mg IV Q6H PRN PRN Reason: Pain, Moderate (4-6) Stop: 08/10/19 00:34 Last Admin: 08/05/19 13:50 Dose: 30 mg Documented by: Morphine Sulfate (Morphine) 2 mg IV Q4H PRN PRN Reason: Pain, Moderate (4-6) Last Admin: 08/05/19 00:05 Dose: 2 mg Documented by: Ondansetron HCl (Zofran) 4 mg IV Q4H PRN PRN Reason: Nausea And Vomiting Pantoprazole Sodium (Protonix) 40 mg IV BID [facility] Last Admin: 08/05/19 13:59 Dose: 40 mg Documented by: Sodium Chloride (Sodium Chloride Flush Syringe 10 Ml) 10 ml IV BID [facility] Last Admin: 08/05/19 11:26 Dose: 10 ml Documented by: Sodium Chloride (Sodium Chloride Flush Syringe 10 Ml) 10 ml IV PRN PRN PRN Reason: LINE FLUSH Review of Systems All systems: negative (10 pt ROS performed and negative except for that listed in HPI) Exam Vital Signs Temp Pulse Resp BP Pulse Ox 98.7 F 58 L 18 184/75 100 08/04/19 13:42 08/04/19 13:42 08/04/19 13:42 08/04/19 13:42 08/04/19 13:42 Narrative exam: Gen: AAOx3. NAD ENT: no scleral icterus or conjunctival pallor CV: s1, S2+ Resp; even and unlabored Abd: soft, ND, + epigastric, RUQ, R mid abdominal TTP. No r/r/g Ext: no c/c/e Results - Labs 08/05/19 05:52 08/05/19 05:52 Abnormal lab results 08/04/19 08/04/19 08/04/19 Range/Units 14:31 14:38 14:38 WBC 12.1 H (4.5-11.0) K/mm3 MCV 77 L (79-97) fl MCH 25 L (28-32) pg RDW 17.0 H (13.2-15.2) % Lymph % (Auto) (13.4-35.0) % Seg Neutrophils % 82.0 H (40.0-70.0) % Seg Neutrophils # 9.9 H (1.8-7.7) K/mm3 PT (12.2-14.9) Sec. INR (0.87-1.13) Potassium (3.6-5.0) mmol/L Carbon Dioxide 21 L (22-30) mmol/L BUN 6 L (7-17) mg/dL Creatinine 0.6 L (0.7-1.2) mg/dL Glucose 118 H (65-100) mg/dL Urine pH 7.5 H (5.0-7.0) Urine Blood Moderate A (Negative) 08/05/19 08/05/19 08/05/19 Range/Units 05:52 05:52 05:52 WBC 16.3 H (4.5-11.0) K/mm3 MCV 77 L (79-97) fl MCH 25 L (28-32) pg RDW 16.7 H (13.2-15.2) % Lymph % (Auto) 7.4 L (13.4-35.0) % Seg Neutrophils % 88.0 H (40.0-70.0) % Seg Neutrophils # 14.3 H (1.8-7.7) K/mm3 PT 15.2 H (12.2-14.9) Sec. INR 1.21 H (0.87-1.13) Potassium 3.5 L (3.6-5.0) mmol/L Carbon Dioxide (22-30) mmol/L BUN (7-17) mg/dL Creatinine (0.7-1.2) mg/dL Glucose 113 H (65-100) mg/dL Urine pH (5.0-7.0) Urine Blood (Negative) Diabetes panel 08/04/19 08/05/19 Range/Units 14:38 05:52 Sodium 139 139 (137-145) mmol/L Potassium 3.6 3.5 L (3.6-5.0) mmol/L Chloride 100.4 102.4 (98-107) mmol/L Carbon Dioxide 21 L 23 (22-30) mmol/L BUN 6 L 9 (7-17) mg/dL Creatinine 0.6 L 0.7 (0.7-1.2) mg/dL Glucose 118 H 113 H (65-100) mg/dL Calcium 9.1 8.8 (8.4-10.2) mg/dL AST 15 (5-40) units/L ALT 17 (7-56) units/L Alkaline Phosphatase 52 (35-129) units/L Total Protein 7.5 (6.3-8.2) g/dL Albumin 4.7 (3.9-5) g/dL Calcium panel 08/04/19 08/05/19 Range/Units 14:38 05:52 Calcium 9.1 8.8 (8.4-10.2) mg/dL Albumin 4.7 (3.9-5) g/dL Pituitary panel 08/04/19 08/05/19 Range/Units 14:38 05:52 Sodium 139 139 (137-145) mmol/L Potassium 3.6 3.5 L (3.6-5.0) mmol/L Chloride 100.4 102.4 (98-107) mmol/L Carbon Dioxide 21 L 23 (22-30) mmol/L BUN 6 L 9 (7-17) mg/dL Creatinine 0.6 L 0.7 (0.7-1.2) mg/dL Glucose 118 H 113 H (65-100) mg/dL Calcium 9.1 8.8 (8.4-10.2) mg/dL Adrenal panel 08/04/19 08/05/19 Range/Units 14:38 05:52 Sodium 139 139 (137-145) mmol/L Potassium 3.6 3.5 L (3.6-5.0) mmol/L Chloride 100.4 102.4 (98-107) mmol/L Carbon Dioxide 21 L 23 (22-30) mmol/L BUN 6 L 9 (7-17) mg/dL Creatinine 0.6 L 0.7 (0.7-1.2) mg/dL Glucose 118 H 113 H (65-100) mg/dL Calcium 9.1 8.8 (8.4-10.2) mg/dL Total Bilirubin 0.30 (0.1-1.2) mg/dL AST 15 (5-40) units/L ALT 17 (7-56) units/L Alkaline Phosphatase 52 (35-129) units/L Total Protein 7.5 (6.3-8.2) g/dL Albumin 4.7 (3.9-5) g/dL - Imaging CT scan - abdomen: report reviewed, image reviewed CT scan - pelvis: report reviewed, image reviewed US - abdomen: report reviewed, image reviewed Additional studies: HIDA SCAN WITH CCK Assessment and Plan 33 yo F with 1. abdominal pain 2/2 biliary dyskinesia 2. nausea/vomiting Plan: 1. Clears, NPO p MN 2. IVF 3. prn pain and nausea control 4. reviewed CT scan, U/s, and HIDA without cck with Dr. Weldon. Possibly nonspecific fluid in gallbladder fossa and early sigmoid diverticulitis, uncomplicated on CT. No stones in gallbladder on u/s. HIDA scan shows normal uptake of tracer into the gallbladder but no bowel visualized at 2 Hrs. 5. HIDA scan with EF - CCK reproduced patient's symptoms. Gallbladder EF 2% 6. Recommend OR for cholecystectomy. I discussed indication, risks, benefits, alternatives to surgery with patient. All questions answered and consent obta ined. Patient added to OR schedule for tomorrow at 730 am. Patient advised to call her mother, who is her preferred NOK regarding plan. Thank you, please call with questions.
[2019-08-05] MEDS: ONDANSETRON 4 MG/2 ML INJ IV PRN ×2 (15:01→21:27)
[2019-08-05] MEDS: PIPERACIL/TAZOBACTA 4.5/NS 100 4.5 GM/100 ML VIAL IV SCH (16:08)
[2019-08-05] MEDS ORDERED: oxyCODONE /ACETAMINOPHEN 5-325MG TAB PO PRN (17:21)
[2019-08-06] MEDS ORDERED: hydrALAZINE 20 MG/1 ML INJ IV PRN (00:27)
[2019-08-06] MEDS ORDERED: amLODIPine 10 MG TAB PO ONE (00:27)
[2019-08-06] MEDS: SODIUM CHLORIDE 0.9% 1000 ML 1,000 ML IV SCH (00:44)
[2019-08-06] MEDS: ONDANSETRON 4 MG/2 ML INJ IV PRN (01:36)
[2019-08-06] MEDS: MORPHINE 2 MG/1 ML INJ IV PRN ×2 (01:36→11:14)
[2019-08-06] MEDS: PIPERACIL/TAZOBACTA 4.5/NS 100 4.5 GM/100 ML VIAL IV SCH ×2 (01:36→06:13)
[2019-08-06] MEDS: POTASSIUM CHLORIDE 10 MEQ 10 MEQ/100 ML BAG IV SCH (02:36)
[2019-08-06 05:51] LABS: Hematocrit 35.4 % (30.3-42.9); Hemoglobin 11.4 gm/dl (10.1-14.3); Mean Corpuscular HGB Conc 32 % (30-34); Mean Corpuscular Volume 77 fl (79-97); Red Blood Count 4.62 M/mm3 (3.65-5.03); Red Cell Distribution Width 16.4 % (13.2-15.2)
[2019-08-06 05:54] LABS: Platelet Count 239 K/mm3 (140-440)
[2019-08-06] MEDS ORDERED: FLU VACC QUAD 2019-20 (3 YR UP)/PF 60 MCG/0.5 ML SYRINGE IM ONE (06:00)
[2019-08-06] MEDS ORDERED: hydrALAZINE 20 MG/1 ML INJ IV ONE (06:05)
[2019-08-06 06:14] LABS: BUN/Creatinine Ratio 10; Blood Urea Nitrogen 7 mg/dL (7-17); Calcium 8.9 mg/dL (8.4-10.2); Hemolysis Index 6
[2019-08-06] MEDS ORDERED: MIDAZOLAM 2 MG/2 ML INJ IV NR (07:00)
[2019-08-06] MEDS ORDERED: HYDROmorphone 1 MG/1 ML INJ IV PRN (07:12)
--- NOTE | 2019-08-06 07:22 | Anesthesia Consultation ---
Anesthesia Consult and Med Hx Date of service: 08/06/19 - Airway Anesthetic Teeth Evaluation: Good ROM Head & Neck: Adequate Mental/Hyoid Distance: Adequate Mallampati Class: Class III Intubation Access Assessment: Possibly Difficult - Pulmonary Exam CTA: Yes - Cardiac Exam Cardiac Exam: RRR - Pre-Operative Health Status ASA Pre-Surgery Classification: ASA2 Proposed Anesthetic Plan: General - Pulmonary Hx Smoking: Yes Hx Respiratory Symptoms: No - Cardiovascular System Hx Hypertension: Yes (poorly controlled this admission. Received antihypertensives this morning.) Hx Heart Attack/AMI: No - Central Nervous System CVA: No - Gastrointestinal Hx Gastroesophageal Reflux Disease: No - Endocrine Hx Renal Disease: No Hx Liver Disease: No Hx Insulin Dependent Diabetes: No Hx Non-Insulin Dependent Diabetes: No Hx Thyroid Disease: No - Hematic Hx Anemia: Yes - Other Systems Hx Obesity: No - Additional Comments Anesthesia Medical History Comments: No prior GA. No FHx anesthetic complications.
--- NOTE | 2019-08-06 07:23 | Anesthesia Day of Surgery ---
Anesthesia Day of Surgery - Day of Surgery Patient Examined: Yes Patient H&P Reviewed: Yes Patient is NPO: Yes
[2019-08-06] MEDS ORDERED: LIDOCAINE (1%) 10 MG/1 ML VIAL 20 ML MDV ONE (07:32)
[2019-08-06] MEDS ORDERED: BUPIVACAINE/PF (0.5%) 5 MG/1 ML 30 ML VIAL INFILTRATI ONE ×2 (07:32→08:51)
[2019-08-06] MEDS ORDERED: fentaNYL 100 MCG/2 ML INJ ONE (07:45)
[2019-08-06] MEDS: LACTATED RINGERS 1,000 ML IV SCH ×2 (07:45→11:17)
[2019-08-06] MEDS: fentaNYL 100 MCG/2 ML INJ IV PRN ×2 (07:45→10:03)
[2019-08-06] MEDS ORDERED: PROPOFOL 200 MG/20 ML VIAL IV ONE (07:45)
[2019-08-06] MEDS ORDERED: ePHEDrine SULFATE 50 MG/1 ML INJ ONE (08:19)
[2019-08-06] MEDS ORDERED: LIDOCAINE (1%) 10 MG/1 ML VIAL 20 ML MDV INFILTRATI ONE (08:51)
[2019-08-06] MEDS ORDERED: WATER FOR IRRIG STERILE 1,500 ML BOTTLE IR ONE (08:52)
[2019-08-06] MEDS ORDERED: NEOSTIGMINE 10MG/10 ML INJ MDV ONE (09:14)
[2019-08-06] MEDS ORDERED: GLYCOPYRROLATE 0.4 MG/2 ML INJ ONE (09:14)
[2019-08-06] MEDS ORDERED: ONDANSETRON 4 MG/2 ML INJ ONE (09:14)
[2019-08-06] MEDS ORDERED: dexAMETHasone 20 MG/5 ML VIAL ONE (09:14)
[2019-08-06] MEDS ORDERED: PHENYLEPHRINE/NS 1,000 MCG/10 ML SYRINGE (OR USE) IV ONE (09:14)
[2019-08-06] MEDS ORDERED: HYDROmorphone 1 MG/1 ML INJ ONE (09:20)
--- NOTE | 2019-08-06 09:21 | Post Operative Note ---
Date of procedure: 08/06/19 Pre-op diagnosis: biliary dyskinesia Post-op diagnosis: same Findings: distended gallbladder with inflammation at the neck, omental adhesions to gallbladder Procedure: robotic assisted cholecystectomy Anesthesia: ALDOA, local Surgeon: GRACE FRANK Warehouse Distribution Manager: PAPA SMALL Estimated blood loss: minimal Pathology: list (gallbladder) Specimen disposition: to lab Condition: stable Disposition: PACU
--- NOTE | 2019-08-06 10:07 | Event Note ---
Date: 08/06/19 HIDA scan yesterday with EF 2 % c/w biliary dyskinesia. Surgery following with plans for cholecystectomy today. GI will sign off and defer further management to surgery. Please call back if needed.
--- NOTE | 2019-08-06 10:10 | Discharge Summary ---
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 She also indicates that she has had some low-grade fever at home. She had a bout of diarrhea which has resolved. Workup in the the emergency room including CT of the abdomen suggestive of cholecystitis. General surgeon has been consulted for evaluation. Per current information and discussion with GI the patient had a diagnosis of Colitis and not Crohns, also the patient has had chronic nausea with vomiting and has been informed in the past that it is likely due to THC. * HIDA scan yesterday with EF 2 % c/w biliary dyskinesia. Surgery following with plans for cholecystectomy today. GI will sign off and defer further management to surgery. * Patient proceeded to surgery for lap germaine, was unremarkable per surgeon. will discharge today following diet * counselling provided on THC use 15 mins * will discharge on abx. (1) Abdominal pain secondary to acute cholcystitis, (2) presume Colitis (3) Hypokalemia (4) Leukocytosis No fever, ?reactive. No evidence of sepsis, will monitor ?Secondary to steroids (5) Hypertensive urgency Anticipate improvement with pain control.restart home meds on discharge (6) Bradycardia ?effect of THC, patient is asymptiomatic will monitor (7)cannabinoid hyperemesis syndrom. Disposition: DC-01 TO HOME OR SELFCARE Time spent for discharge: 35 mins Core Measure Documentation - Palliative Care Palliative Care/ Comfort Measures: Not Applicable - Core Measures Any of the following diagnoses?: none Exam - Physical Exam Narrative exam: General appearance: Present: no acute distress, well-nourished - EENT Eyes: Present: PERRL, EOM intact ENT: hearing intact, clear oral mucosa, dentition normal - Neck Neck: Present: supple, normal ROM - Respiratory Respiratory effort: normal Respiratory: bilateral: CTA - Cardiovascular Rhythm: regular Heart Sounds: Present: S1 & S2 - Extremities Extremities: no ischemia, pulses intact, No edema, Full ROM Peripheral Pulses: within normal limits - Abdominal General gastrointestinal: Present: soft, tender (mild periumblical tenderness no rebound tenderness and no masses) - Integumentary Integumentary: Present: clear, warm, dry - Musculoskeletal Musculoskeletal: strength equal bilaterally - Psychiatric Psychiatric: appropriate mood/affect, intact judgment & insight, cooperative - Neurologic Neurologic: CNII-XII intact, moves all extremities - Constitutional Vitals: Temp Pulse Resp BP Pulse Ox 100 F H 79 21 167/94 100 08/06/19 09:30 08/06/19 10:00 08/06/19 10:00 08/06/19 10:00 08/06/19 10:00 Plan Activity: advance as tolerated, fall precautions Diet: low fat Special Instructions: record daily weights, record daily BP diary Follow up with: PRIMARY CARE, [Primary Care Provider] - 3-5 Days GRACE FRANK DO [Staff Physician] - 7 Days Prescriptions: amLODIPine 10 mg PO DAILY #30 tab Ciprofloxacin HCl [Ciprofloxacin TAB] 500 mg PO Q12HR #14 tab metroNIDAZOLE [Flagyl] 500 mg PO Q8HR #20 tablet Prednisone [predniSONE 10 mg (6-Day Pack, 21 Tabs)] 10 mg PO .TAPER #1 tab.ds.pk traMADoL [Ultram 50 MG tab] 50 mg PO Q4HR PRN #14 tablet PRN Reason: Pain Ondansetron [Zofran Odt] 4 mg PO Q8HR PRN #14 tab.rapdis PRN Reason: Nausea And Vomiting
[2019-08-06] MEDS: PANTOPRAZOLE 40 MG INJ IV SCH (11:16)
--- NOTE | 2019-08-06 11:51 | Post Anesthesia Evaluation ---
- Post Anesthesia Evaluation Patient Participated: Yes Airway Patent: Yes Stable Respiratory Function: Yes Nausea/Vomiting: No Temp > 96.8F: Yes Pain Manageable: Yes Adequeate Hydration: Yes Anesthesia Complications: No
[2019-08-06] MEDS: KETOROLAC 30 MG/1 ML INJ IV PRN (14:01)
[2019-08-06] MEDS ORDERED: cloNIDine 0.1 MG TAB PO ONE (14:15)
[2019-08-06 16:40] VITALS: BP 153/86
--- NOTE | 2019-08-07 16:22 | Operative Report ---
Operative Report Operative Report: Date of procedure: 08/06/19 Pre-op diagnosis: biliary dyskinesia Post-op diagnosis: same Findings: distended gallbladder with inflammation at the neck, omental adhesions to gallbladder Procedure: robotic assisted cholecystectomy Anesthesia: FRANCESCA local Surgeon: GRACE FRANK Substation Inspector: PAPA SMALL Estimated blood loss: minimal Pathology: list (gallbladder) Specimen disposition: to lab Condition: stable Disposition: PACU HPI and indication: 33 yo F with hx of HTN presents to ER with severe sharp, burning epigastric abdominal pain that radiates to the rest of the abdomen. CT scan A/P showed abnormal gallbladder with pericholecystic fluid. U/s abd showed gallbladder without stones, normal gallbladder wall and CBD. HIDA scan with EF showed gallbladder EF of 2%. The patient's symptoms were felt to be due to biliary dyskinesia and cholecystectomy recommended. All risks, benefits, alternatives to surgery were discussed and questions answered. Consent obtained. Procedure in detail: The patient was identified in the preop area, taken back to the operating room and placed on the OR table in supine position. After anesthesia was induced, the abdomen was prepped and draped in the usual sterile fashion and a time out performed. Local anesthetic was infiltrated in to the skin incision sites. A veress needle was placed through the umbilicus and positioning confirmed using saline drop test. The abdomen was insufflated to 15mmHG. A LUQ incision was made through which a 5mm optiview trocar was placed. The abdomen was inspected and there was no underlying injury to the abdominal structures. The veress was removed. An addition 12mm suprapubic, and 2 8mm robotic R sided trocars were placed under direct visualization. The patient was placed in reverse trendelenberg and tilted to the left. The gallbladder was visualized. The robot was then docked. A monopolar hook was placed in arm 1, caudiere isn arm 2 and prograsp in arm 3. The surgeon was transferred to the console. The gallbladder fundus was grasped and retracted cephalad and above the liver. Omental adhesions to the gallbladder were dissected using the hook. Once all the adhesions were taken down, the gallbladder infundibulum was retracted laterally. The cystic duct and artery were dissected meticulously. The critical view was obtained and the cystic duct and artery were the only 2 structures seen entering the gallbladder. 2 clips were placed on the proximal aspect of the duct and one distally. 1 clip was placed on the proximal aspect of the artery and one distally. A clip was also placed on the distal aspect of callots node. The artery and duct were transected between the clips using endoshears by the digital assistant surgeon. The gallbladder was then dissected off the liver bed using hook electrocautery. The gallbladder was placed in the RUQ and the gallbladder fossa and liver bed examined. There was no bile leakage or bleeding seen. The clips were visualized and intact. The robot was then undocked. The surgeon was scrubbed back in and the remainder of the case performed laparoscopically. The gallbladder was placed in an endocatch bag and removed via the 12 mm port. The 12mm port fascia was closed using interrupted 0 vicryl sutures and daniela sarabia device. The remainder of the ports were removed under direct visualization. The skin was infiltrated with local anesthetic and incisions closed with 4-0 monocryl suture and skin glue. At the end of the case, all sponge, instrument, sharp counts were correct x2. The patient was awoken from anesthesia, extubated and taken to PACU in stable condition.
== END 2019-08-06 18:02 | disposition home or self-care (01) | DRG 419 ==
LOC: ED 13:38 → 3A 21:33 → OBSVTOIN 08-05 16:07
PROVIDERS: ADMIT Internal Medicine Geriatric Medicine; ATTEND Internal Medicine
PROC: 0FT44ZZ Resection of Gallbladder, Percutaneous Endoscopic Approach (ICD-10-PCS; principal; 2019-08-06)
PROC: 8E0W4CZ Robotic Assisted Procedure of Trunk Region, Percutaneous Endoscopic Approach (ICD-10-PCS; 2019-08-06)
DX: K81.0 Acute cholecystitis (principal); E87.6 Hypokalemia; K52.9 Noninfective gastroenteritis and colitis, unspecified; D72.829 Elevated white blood cell count, unspecified; R00.1 Bradycardia, unspecified; T38.0X5A Adverse effect of glucocorticoids and synthetic analogues, initial encounter; I10 Essential (primary) hypertension; F17.210 Nicotine dependence, cigarettes, uncomplicated; F12.90 Cannabis use, unspecified, uncomplicated; K82.8 Other specified diseases of gallbladder; K66.0 Peritoneal adhesions (postprocedural) (postinfection); Y92.89 Other specified places as the place of occurrence of the external cause; Z79.899 Other long term (current) drug therapy
CPT/HCPCS: 36415; 74177; 76705; 78226; 80048; 80053; 81001; 81025; 83690; 84703; 85025; 85027; 85610; 85730; 88304; 90686; 96365; G0378; A9537; C9113; J0360; J1100; J1170; J1885; J2250; J2270; J2370; J2405; J2543; J2704; J2710; J2765; J2805; J2930; J3010; J3480; J7030; J7120; Q0162; Q9967

== ENCOUNTER 2019-08-08 10:59 | Emergency (ER) | payer OTHER ==
--- NOTE | 2019-08-08 13:33 | Emergency Department Report ---
ED General Adult HPI - General Chief complaint: Nausea/Vomiting/Diarrhea Stated complaint: POST GALLBLADDER SURGERY ISSUES Time Seen by Provider: 08/08/19 13:18 Source: patient Mode of arrival: Wheelchair Limitations: No Limitations - History of Present Illness Initial comments: 33-year-old female presents to ED with postsurgical abdominal pain. Patient had laparoscopic cholecystectomy 2 days ago. Upon discharge patient did not receive her prescription for tramadol. Patient states she called on yesterday and was told that a prescription would be called in, however she checked with her pharmacy and there is no prescription for her. Patient states she is due to return to work on tomorrow, states pain is not severe, but needs something for pain. Patient states she told the physician prior to discharge at tramadol causes adverse reaction, so patient is requesting Tylenol 3. Patient reports one episode of vomiting this morning, however states she has been tolerating by mouth since her surgery. Patient denies fever. Surgeon: Dr Frank -: days(s) (2) Location: abdomen Quality: aching Consistency: intermittent Improves with: none Worsens with: none Associated Symptoms: nausea/vomiting. denies: fever/chills - Related Data Previous Rx's Medication Instructions Recorded Last Taken Type Ondansetron [Zofran Odt] 4 mg PO Q8HR PRN #14 tab.rapdis 08/04/19 Unknown Rx Prednisone [predniSONE 10 mg 10 mg PO .TAPER #1 tab.ds.pk 08/04/19 Unknown Rx (6-Day Pack, 21 Tabs)] Ciprofloxacin HCl [Ciprofloxacin 500 mg PO Q12HR #14 tab 08/06/19 Unknown Rx TAB] amLODIPine 10 mg PO DAILY #30 tab 08/06/19 Unknown Rx metroNIDAZOLE [Flagyl] 500 mg PO Q8HR #20 tablet 08/06/19 Unknown Rx traMADoL [Ultram] 50 mg PO Q6HR PRN #14 tablet 08/07/19 Unknown Rx Acetaminophen/Codeine [Tylenol 1 tab PO Q6H PRN #10 tab 08/08/19 Unknown Rx /Codeine # 3 tab] Allergies Allergy/AdvReac Type Severity Reaction Status Date / Time No Known Allergies Allergy Verified 03/14/19 15:21 ED Review of Systems ROS: Stated complaint: POST GALLBLADDER SURGERY ISSUES Other details as noted in HPI Comment: All other systems reviewed and negative Constitutional: denies: chills, fever Gastrointestinal: abdominal pain, nausea, vomiting ED Past Medical Hx - Past Medical History Previous Medical History?: Yes Hx Hypertension: Yes (poorly controlled this admission. Received antihypertensives this morning.) Hx Heart Attack/AMI: No Hx Congestive Heart Failure: Yes (after is on no medication) Hx Diabetes: No Hx Liver Disease: No Hx Renal Disease: No Hx Asthma: No Hx COPD: No Hx HIV: No Additional medical history: crohns - Surgical History Past Surgical History?: Yes Hx Cholecystectomy: Yes - Social History Smoking Status: Never Smoker Substance Use Type: Alcohol - Medications Home Medications: Home Medications Medication Instructions Recorded Confirmed Last Taken Type Ondansetron [Zofran Odt] 4 mg PO Q8HR PRN #14 tab.rapdis 08/04/19 Unknown Rx Prednisone [predniSONE 10 mg 10 mg PO .TAPER #1 tab.ds.pk 08/04/19 Unknown Rx (6-Day Pack, 21 Tabs)] Ciprofloxacin HCl [Ciprofloxacin 500 mg PO Q12HR #14 tab 08/06/19 Unknown Rx TAB] amLODIPine 10 mg PO DAILY #30 tab 08/06/19 Unknown Rx metroNIDAZOLE [Flagyl] 500 mg PO Q8HR #20 tablet 08/06/19 Unknown Rx traMADoL [Ultram] 50 mg PO Q6HR PRN #14 tablet 08/07/19 Unknown Rx Acetaminophen/Codeine [Tylenol 1 tab PO Q6H PRN #10 tab 08/08/19 Unknown Rx /Codeine # 3 tab] ED Physical Exam - General Limitations: No Limitations General appearance: alert, in no apparent distress - Head Head exam: Present: atraumatic, normocephalic - Eye Eye exam: Present: normal appearance - ENT ENT exam: Present: mucous membranes moist - Neck Neck exam: Present: normal inspection - Respiratory Respiratory exam: Present: normal lung sounds bilaterally. Absent: respiratory distress - Cardiovascular Cardiovascular Exam: Present: regular rate, normal rhythm - GI/Abdominal GI/Abdominal exam: Present: soft, tenderness (mild), other (periumbilical bruising present; incision sites appear clean, dry, and intact). Absent: distended - Extremities Exam Extremities exam: Present: normal inspection - Neurological Exam Neurological exam: Present: alert, oriented X3 - Psychiatric Psychiatric exam: Present: normal affect, normal mood - Skin Skin exam: Present: warm, dry, intact, normal color ED Course Vital Signs 11/29/19 11/29/19 11/29/19 11:05 12:39 13:44 Temperature 98.2 F 98.2 F Pulse Rate 78 78 74 Respiratory 18 18 16 Rate Blood Pressure 150/91 Blood Pressure 150/91 146/86 [Right] O2 Sat by Pulse 100 100 100 Oximetry ED Medical Decision Making - Medical Decision Making 33-year-old female with laparoscopic cholecystectomy performed 2 days ago. Patient states she did not receive pain medication prescription upon discharge. I checked the ascription drug registry, and patient has not filled any narcotic medication in the lasts 5 months. Patient given prescription for Tylenol 3. Follow up with surgeon advised. Return precautions given. - Differential Diagnosis postoperative pain. Critical care attestation.: If time is entered above; I have spent that time in minutes in the direct care of this critically ill patient, excluding procedure time. ED Disposition Clinical Impression: Postoperative abdominal pain Disposition: DC-01 TO HOME OR SELFCARE Is pt being admited?: No Condition: Stable Prescriptions: Acetaminophen/Codeine [Tylenol /Codeine # 3 tab] 1 tab PO Q6H PRN #10 tab PRN Reason: pain Referrals: GRACE FRANK DO [Staff Physician] - as needed Time of Disposition: 13:34
[2019-08-08 13:45] VITALS: BP 146/86
== END 2019-08-08 13:44 | disposition home or self-care (01) ==
LOC: ED 10:59
DX: G89.18 Other acute postprocedural pain (principal); R10.9 Unspecified abdominal pain
CPT/HCPCS: 99282

== ENCOUNTER 2019-08-27 09:41 | Emergency (ER) | payer OTHER ==
[2019-08-27] MEDS ORDERED: predniSONE 20 MG TAB PO ONE (10:44)
[2019-08-27] MEDS ORDERED: SODIUM CHLORIDE 0.9% 1000 ML 1,000 ML IV ONE (10:44)
[2019-08-27] MEDS ORDERED: ACETAMINOPHEN 500 MG TAB PO ONE (10:45)
--- NOTE | 2019-08-27 10:46 | Emergency Department Report ---
ED Abdominal Pain HPI - General Chief Complaint: Sore Throat Stated Complaint: POSS STREP THROAT Time Seen by Provider: 08/27/19 10:44 Source: patient Mode of arrival: Ambulatory Limitations: No Limitations - History of Present Illness Initial Comments: 33 yo well known to us due to her acute/chronic abd pain. She has a hx of Chrones and had recent choley. She has been to ER post op for full work up. EMR reviewed and scans noted. Pt endorses diarrhea which is chronic. Denies n/v. Denies fever or chills. States her throat hurts. No headache. She is ambulatory and non ill on exam She has not followed up as instructed last visit due to insurance problems. Nor is she taking meds given. Pt educated on need to take her Rx to prevent complications. MD Complaint: abdominal pain - Related Data Previous Rx's Medication Instructions Recorded Last Taken Type Amoxicillin [Trimox CAP] 500 mg PO BID #20 capsule 08/27/19 Unknown Rx Prednisone [predniSONE 10 mg 10 mg PO .TAPER #1 tab.ds.pk 08/27/19 Unknown Rx (6-Day Pack, 21 Tabs)] amLODIPine 10 mg PO DAILY #30 tab 08/27/19 Unknown Rx Allergies Allergy/AdvReac Type Severity Reaction Status Date / Time No Known Allergies Allergy Verified 03/14/19 15:21 ED Review of Systems ROS: Stated complaint: POSS STREP THROAT Other details as noted in HPI Comment: All other systems reviewed and negative ED Past Medical Hx - Past Medical History Previous Medical History?: Yes Hx Hypertension: Yes Hx Heart Attack/AMI: No Hx Congestive Heart Failure: Yes (after is on no medication) Hx Diabetes: No Hx Liver Disease: No Hx Renal Disease: No Hx Asthma: No Hx COPD: No Hx HIV: No Additional medical history: crohns - Surgical History Past Surgical History?: Yes Hx Cholecystectomy: Yes - Family History Family history: no significant - Social History Smoking Status: Never Smoker Substance Use Type: Alcohol - Medications Home Medications: Home Medications Medication Instructions Recorded Confirmed Last Taken Type Amoxicillin [Trimox CAP] 500 mg PO BID #20 capsule 08/27/19 Unknown Rx Prednisone [predniSONE 10 mg 10 mg PO .TAPER #1 tab.ds.pk 08/27/19 Unknown Rx (6-Day Pack, 21 Tabs)] amLODIPine 10 mg PO DAILY #30 tab 08/27/19 Unknown Rx ED Physical Exam - General Limitations: No Limitations General appearance: alert, in no apparent distress - Head Head exam: Present: atraumatic, normocephalic - Eye Eye exam: Present: normal appearance - ENT ENT exam: Present: mucous membranes moist - Neck Neck exam: Present: normal inspection - Respiratory Respiratory exam: Present: normal lung sounds bilaterally. Absent: respiratory distress - Cardiovascular Cardiovascular Exam: Present: regular rate, normal rhythm. Absent: systolic mu rmur, diastolic murmur, rubs, gallop - GI/Abdominal GI/Abdominal exam: Present: soft, normal bowel sounds - Extremities Exam Extremities exam: Present: normal inspection - Back Exam Back exam: Present: normal inspection - Neurological Exam Neurological exam: Present: alert, oriented X3 - Psychiatric Psychiatric exam: Present: normal affect, normal mood - Skin Skin exam: Present: warm, dry, intact, normal color. Absent: rash ED Course Vital Signs 08/27/19 08/27/19 08/27/19 09:46 10:47 11:00 Temperature 100.2 F H Pulse Rate 103 H Respiratory 19 Rate Blood Pressure 152/88 144/90 144/90 O2 Sat by Pulse 98 100 100 Oximetry 08/27/19 08/27/19 08/27/19 11:16 11:30 11:46 Temperature Pulse Rate Respiratory Rate Blood Pressure 145/82 145/82 158/84 O2 Sat by Pulse 100 100 100 Oximetry 08/27/19 13:30 Temperature 97.5 F L Pulse Rate Respiratory Rate Blood Pressure O2 Sat by Pulse Oximetry ED Medical Decision Making - Lab Data Result diagrams: 08/27/19 11:07 08/27/19 11:07 - Radiology Data Radiology results: report reviewed, image reviewed - Medical Decision Making Lab Results 08/27/19 08/27/19 08/27/19 Range/Units 11:07 11:07 11:07 WBC 22.8 H (4.5-11.0) K/mm3 RBC 4.81 (3.65-5.03) M/mm3 Hgb 12.1 (10.1-14.3) gm/dl Hct 37.0 (30.3-42.9) % MCV 77 L (79-97) fl MCH 25 L (28-32) pg MCHC 33 (30-34) % RDW 16.8 H (13.2-15.2) % Plt Count 274 (140-440) K/mm3 Add Manual Diff Complete Total Counted 100 Seg Neuts % (Manual) 87.0 H (40.0-70.0) % Band Neutrophils % 2.0 % Lymphocytes % (Manual) 8.0 L (13.4-35.0) % Reactive Lymphs % (Man) 0 % Monocytes % (Manual) 3.0 (0.0-7.3) % Eosinophils % (Manual) 0 (0.0-4.3) % Basophils % (Manual) 0 (0.0-1.8) % Metamyelocytes % 0 % Myelocytes % 0 % Promyelocytes % 0 % Blast Cells % 0 % Nucleated RBC % Not Reportable Seg Neutrophils # Man 19.8 H (1.8-7.7) K/mm3 Band Neutrophils # 0.5 K/mm3 Lymphocytes # (Manual) 1.8 (1.2-5.4) K/mm3 Abs React Lymphs (Man) 0.0 K/mm3 Monocytes # (Manual) 0.7 (0.0-0.8) K/mm3 Eosinophils # (Manual) 0.0 (0.0-0.4) K/mm3 Basophils # (Manual) 0.0 (0.0-0.1) K/mm3 Metamyelocytes # 0.0 K/mm3 Myelocytes # 0.0 K/mm3 Promyelocytes # 0.0 K/mm3 Blast Cells # 0.0 K/mm3 WBC Morphology Not Reportable Hypersegmented Neuts Not Reportable Hyposegmented Neuts Not Reportable Hypogranular Neuts Not Reportable Smudge Cells Not Reportable Toxic Granulation Not Reportable Toxic Vacuolation Not Reportable Dohle Bodies Not Reportable Pelger-Huet Anomaly Not Reportable Chidi Rods Not Reportable Platelet Estimate Consistent w auto Clumped Platelets Not Reportable Plt Clumps, EDTA Not Reportable Large Platelets Not Reportable Giant Platelets Not Reportable Platelet Satelliting Not Reportable Plt Morphology Comment Not Reportable RBC Morphology Not Reportable Dimorphic RBCs Not Reportable Polychromasia Not Reportable Hypochromasia 1+ Poikilocytosis Not Reportable Anisocytosis Not Reportable Microcytosis Few Macrocytosis Not Reportable Spherocytes Not Reportable Pappenheimer Bodies Not Reportable Sickle Cells Not Reportable Target Cells Not Reportable Tear Drop Cells Not Reportable Ovalocytes Not Reportable Helmet Cells Not Reportable [place] Bodies Not Reportable [place] Rings Not Reportable [place]rumpton Cells Not Reportable Bite Cells Not Reportable Crenated Cell Not Reportable Elliptocytes Not Reportable Acanthocytes (Spur) Not Reportable Rouleaux Not Reportable Hemoglobin C Crystals Not Reportable Schistocytes Not Reportable Malaria parasites Not Reportable Maximino Bodies Not Reportable Hem Pathologist Commnt No Sodium 138 (137-145) mmol/L Potassium 3.5 L (3.6-5.0) mmol/L Chloride 99.8 (98-107) mmol/L Carbon Dioxide 20 L (22-30) mmol/L Anion Gap 22 mmol/L BUN 8 (7-17) mg/dL Creatinine 0.6 L (0.7-1.2) mg/dL Estimated GFR > 60 ml/min BUN/Creatinine Ratio 13 % Glucose 109 H (65-100) mg/dL Lactic Acid (0.7-2.0) mmol/L Calcium 9.1 (8.4-10.2) mg/dL Total Bilirubin 0.40 (0.1-1.2) mg/dL AST 17 (5-40) units/L ALT 16 (7-56) units/L Alkaline Phosphatase 64 (35-129) units/L Total Protein 7.5 (6.3-8.2) g/dL Albumin 4.4 (3.9-5) g/dL Albumin/Globulin Ratio 1.4 % Lipase 15 (13-60) units/L HCG, Qual Negative (Negative) Urine Color (Yellow) Urine Turbidity (Clear) Urine pH (5.0-7.0) Ur Specific [place] (1.003-1.030) Urine Protein (Negative) mg/dL Urine Glucose (UA) (Negative) mg/dL Urine Ketones (Negative) mg/dL Urine Blood (Negative) Urine Nitrite (Negative) Urine Bilirubin (Negative) Urine Urobilinogen (<2.0) mg/dL Ur Leukocyte Esterase (Negative) Urine WBC (Auto) (0.0-6.0) /HPF Urine RBC (Auto) (0.0-6.0) /HPF U Epithel Cells (Auto) (0-13.0) /HPF Urine Mucus /HPF Group A Strep Rapid (Negative) 08/27/19 08/27/19 08/27/19 Range/Units 12:08 12:20 Unknown WBC (4.5-11.0) K/mm3 RBC (3.65-5.03) M/mm3 Hgb (10.1-14.3) gm/dl Hct (30.3-42.9) % MCV (79-97) fl MCH (28-32) pg MCHC (30-34) % RDW (13.2-15.2) % Plt Count (140-440) K/mm3 Add Manual Diff Total Counted Seg Neuts % (Manual) (40.0-70.0) % Band Neutrophils % % Lymphocytes % (Manual) (13.4-35.0) % Reactive Lymphs % (Man) % Monocytes % (Manual) (0.0-7.3) % Eosinophils % (Manual) (0.0-4.3) % Basophils % (Manual) (0.0-1.8) % Metamyelocytes % % Myelocytes % % Promyelocytes % % Blast Cells % % Nucleated RBC % Seg Neutrophils # Man (1.8-7.7) K/mm3 Band Neutrophils # K/mm3 Lymphocytes # (Manual) (1.2-5.4) K/mm3 Abs React Lymphs (Man) K/mm3 Monocytes # (Manual) (0.0-0.8) K/mm3 Eosinophils # (Manual) (0.0-0.4) K/mm3 Basophils # (Manual) (0.0-0.1) K/mm3 Metamyelocytes # K/mm3 Myelocytes # K/mm3 Promyelocytes # K/mm3 Blast Cells # K/mm3 WBC Morphology Hypersegmented Neuts Hyposegmented Neuts Hypogranular Neuts Smudge Cells Toxic Granulation Toxic Vacuolation Dohle Bodies Pelger-Huet Anomaly Chidi Rods Platelet Estimate Clumped Platelets Plt Clumps, EDTA Large Platelets Giant Platelets Platelet Satelliting Plt Morphology Comment RBC Morphology Dimorphic RBCs Polychromasia Hypochromasia Poikilocytosis Anisocytosis Microcytosis Macrocytosis Spherocytes Pappenheimer Bodies Sickle Cells Target Cells Tear Drop Cells Ovalocytes Helmet Cells [place] Bodies [place] Rings [place] Cells Bite Cells Crenated Cell Elliptocytes Acanthocytes (Spur) Rouleaux Hemoglobin C Crystals Schistocytes Malaria parasites Maximino Bodies Hem Pathologist Commnt Sodium (137-145) mmol/L Potassium (3.6-5.0) mmol/L Chloride (98-107) mmol/L Carbon Dioxide (22-30) mmol/L Anion Gap mmol/L BUN (7-17) mg/dL Creatinine (0.7-1.2) mg/dL Estimated GFR ml/min BUN/Creatinine Ratio % Glucose (65-100) mg/dL Lactic Acid 0.80 (0.7-2.0) mmol/L Calcium (8.4-10.2) mg/dL Total Bilirubin (0.1-1.2) mg/dL AST (5-40) units/L ALT (7-56) units/L Alkaline Phosphatase (35-129) units/L Total Protein (6.3-8.2) g/dL Albumin (3.9-5) g/dL Albumin/Globulin Ratio % Lipase (13-60) units/L HCG, Qual (Negative) Urine Color Yellow (Yellow) Urine Turbidity Clear (Clear) Urine pH 7.0 (5.0-7.0) Ur Specific [place] 1.008 (1.003-1.030) Urine Protein <15 mg/dl (Negative) mg/dL Urine Glucose (UA) Neg (Negative) mg/dL Urine Ketones Neg (Negative) mg/dL Urine Blood Neg (Negative) Urine Nitrite Neg (Negative) Urine Bilirubin Neg (Negative) Urine Urobilinogen < 2.0 (<2.0) mg/dL Ur Leukocyte Esterase Neg (Negative) Urine WBC (Auto) < 1.0 (0.0-6.0) /HPF Urine RBC (Auto) 1.0 (0.0-6.0) /HPF U Epithel Cells (Auto) 3.0 (0-13.0) /HPF Urine Mucus Few /HPF Group A Strep Rapid Positive A (Negative) Vital Signs 08/27/19 08/27/19 08/27/19 09:46 10:47 11:00 Temperature 100.2 F H Pulse Rate 103 H Respiratory 19 Rate Blood Pressure 152/88 144/90 144/90 O2 Sat by Pulse 98 100 100 Oximetry 08/27/19 08/27/19 08/27/19 11:16 11:30 11:46 Temperature Pulse Rate Respiratory Rate Blood Pressure 145/82 145/82 158/84 O2 Sat by Pulse 100 100 100 Oximetry 08/27/19 13:30 Temperature 97.5 F L Pulse Rate Respiratory Rate Blood Pressure O2 Sat by Pulse Oximetry strep pos xray neg labs noted IVF/antibiotics per sepsis protocol abd exam is normal/no n/v/d in ER VS remain stable Long discussion with pt about use of ER as her PCP. 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 She will dc home with follow up plan. On dc pt refused amox- states it does not work because she has had strep so often. She requested shot. IM and diflucan PO given. Dc home with appropriate referrals. Critical care attestation.: If time is entered above; I have spent that time in minutes in the direct care of this critically ill patient, excluding procedure time. ED Disposition Clinical Impression: Pharyngitis, Chronic abdominal pain, Strep pharyngitis Disposition: DC-01 TO HOME OR SELFCARE Is pt being admited?: No Does the pt Need Aspirin: No Condition: Stable Instructions: Strep Throat (ED) Additional Instructions: FOLLOW UP WE DISCUSSED SURGEON, PCP AND GI MD BELOW MOTRIN AND TYLENOL FOR PAIN OR FEVER MED ORDERED TODAY DIET AND ACTIVITY TOLERATED Prescriptions: amLODIPine 10 mg PO DAILY #30 tab Prednisone [predniSONE 10 mg (6-Day Pack, 21 Tabs)] 10 mg PO .TAPER #1 tab.ds.pk Amoxicillin [Trimox CAP] 500 mg PO BID #20 capsule Referrals: PRIMARY MD DONA [Primary Care Provider] - 3-5 Days ALLISON GIPSON MD [Staff Physician] - 3-5 Days HARRIS SILVA MD [Staff Physician] - 3-5 Days SOURAV BARR MD [Staff Physician] - 3-5 Days Time of Disposition: 13:49
[2019-08-27 11:28] LABS: Hemoglobin 12.1 gm/dl (10.1-14.3); Mean Corpuscular HGB Conc 33 % (30-34); Mean Corpuscular Volume 77 fl (79-97); Platelet Count 274 K/mm3 (140-440); Red Blood Count 4.81 M/mm3 (3.65-5.03); Red Cell Distribution Width 16.8 % (13.2-15.2)
[2019-08-27] MEDS ORDERED: SODIUM CHLORIDE 0.9% 1000 ML IV SOLN IV ONE (11:45)
[2019-08-27] MEDS ORDERED: metroNIDAZOLE/NS 500 MG/100 ML 500 MG/100 ML BAG IV SCH ×2 (11:49→20:00)
[2019-08-27 11:51] VITALS: BP 158/84
[2019-08-27 11:52] LABS: Alanine Aminotransferase 16 units/L (7-56); Albumin 4.4 g/dL (3.9-5); BUN/Creatinine Ratio 13; Blood Urea Nitrogen 8 mg/dL (7-17); Calcium 9.1 mg/dL (8.4-10.2); Hemolysis Index 3
[2019-08-27 12:31] LABS: Bilirubin,Urine NEG (Negative); Blood,Urine NEG (Negative); Color,Urine Yellow (Yellow); Mucus,Urine FEW /HPF; Protein,Urine <15 mg/dL mg/dL (Negative); Urobilinogen,Urine < 2.0 mg/dL (<2.0); WBC,Urine < 1.0 /HPF (0.0-6.0)
[2019-08-27 12:43] LABS: Band Neutrophils # (Manual) 0.5 K/mm3; Basophils % (Manual) 0 % (0.0-1.8); Eosinophils % (Manual) 0 % (0.0-4.3); Total Cells Counted 100
[2019-08-27 12:44] LABS: Hypochromasia 1+; Platelet Estimate Consistent w Auto
[2019-08-27] MEDS ORDERED: CEFEPIME/NS 2 GM/100 ML 2 GM/100 ML BAG IV SCH (13:00)
--- NOTE | 2019-08-27 13:09 | XRay Report ---
CHEST 1 VIEW INDICATION: fever. COMPARISON: None. FINDINGS: Support devices: None. Heart: Within normal limits. Pulmonary vasculature: Normal. Lungs/Pleura: No acute air space or interstitial disease. No pleural effusion. No pneumothorax. Additional findings: None. IMPRESSION: Normal chest. Signer Name: Kendell Desai MD Signed: 08/27/2019 1:05 PM Workstation Name: [id number]
[2019-08-27] MEDS ORDERED: IBUPROFEN 800 MG TAB ONE (13:27)
[2019-08-27] MEDS ORDERED: IBUPROFEN 800 MG TAB PO ONE (13:27)
[2019-08-27] MEDS ORDERED: KETOROLAC 30 MG/1 ML INJ IV ONE (13:52)
[2019-08-27] MEDS ORDERED: PENICILLIN G BENZATHINE 1.2 MILLION UNIT/2 ML INJ IM ONE (14:57)
[2019-08-27] MEDS ORDERED: FLUCONAZOLE 100 MG TAB PO ONE (15:58)
== END 2019-08-27 15:36 | disposition home or self-care (01) ==
LOC: ED 09:41
DX: J02.9 Acute pharyngitis, unspecified (principal); R10.9 Unspecified abdominal pain; G89.29 Other chronic pain; I11.0 Hypertensive heart disease with heart failure; I50.9 Heart failure, unspecified; Z90.49 Acquired absence of other specified parts of digestive tract; Z79.899 Other long term (current) drug therapy
CPT/HCPCS: 36415; 71045; 80053; 81001; 82140; 83690; 84703; 85007; 85025; 87040; 87086; 87430; 96361; 96365; 96367; 96372; 96375; 99284; J0561; J0692; J1885; J7030; J7512

== ENCOUNTER 2019-11-01 15:56 | Emergency (ER) | payer OTHER | END 2019-11-01 17:45 | LOC: ED 15:56 | DX: R10.9 Unspecified abdominal pain (principal); Z53.21 Procedure and treatment not carried out due to patient leaving prior to being seen by health care provider ==

== ENCOUNTER 2019-11-13 02:05 | Emergency (ER) | payer MEDICAID, OTHER ==
[2019-11-13] MEDS ORDERED: IBUPROFEN 600 MG TAB PO ONE (04:51)
[2019-11-13] MEDS ORDERED: PENICILLIN G BENZATHINE 1.2 MILLION UNIT/2 ML INJ IM ONE (04:51)
[2019-11-13] MEDS ORDERED: dexAMETHasone 20 MG/5 ML VIAL IM ONE (04:51)
[2019-11-13] MEDS ORDERED: LIDOCAINE VISCOUS 2% 15 ML ORAL LIQD PO ONE (04:51)
[2019-11-13 04:54] VITALS: BP 149/78
--- NOTE | 2019-11-13 04:55 | Emergency Department Report ---
ED General Adult HPI - General Chief complaint: Sore Throat Stated complaint: POSS STREP THROAT TONSILS SWOLLEN FEVER Source: patient Mode of arrival: Ambulatory Limitations: No Limitations - History of Present Illness Initial comments: Patient is a 33-year-old -Bhut[place] female with a history of chronic recurrent streptococcal pharyngitis and tonsillitis presents to the ED with complaint of acute onset persistent severe sore throat, dysphagia, nasal and sinus congestion and headache with diffuse body aches and pains for the last 3 days. Patient denies fever, chills, nausea, vomiting, dizziness, chest pain, abdominal pain, diarrhea, change in vision or syncope. MD Complaint: sore throat, dysphagia -: Sudden, days(s) (3) Location: mouth Severity scale (0 -10): 6 Quality: burning, aching, sharp Consistency: constant Improves with: none Worsens with: eating Associated Symptoms: denies other symptoms, loss of appetite, malaise. denies: confusion, chest pain, cough, diaphoresis, fever/chills, headaches, nausea/vomiting, rash, seizure, shortness of breath, syncope, weakness Treatments Prior to Arrival: none - Related Data Previous Rx's Medication Instructions Recorded Last Taken Type Amoxicillin [Trimox CAP] 500 mg PO BID #20 capsule 08/27/19 Unknown Rx Prednisone [predniSONE 10 mg 10 mg PO .TAPER #1 tab.ds.pk 08/27/19 Unknown Rx (6-Day Pack, 21 Tabs)] amLODIPine 10 mg PO DAILY #30 tab 08/27/19 Unknown Rx Ibuprofen [Motrin] 800 mg PO Q8HR PRN #20 tablet 11/13/19 Unknown Rx Lidocaine Viscous 2% 10 ml PO Q6H PRN #120 ml 11/13/19 Unknown Rx methylPREDNISolone [Medrol 4MG 4 mg PO DAILY #21 tab.ds.pk 11/13/19 Unknown Rx DOSEPAK (21 tabs)] Allergies Allergy/AdvReac Type Severity Reaction Status Date / Time No Known Allergies Allergy Verified 03/14/19 15:21 ED Review of Systems ROS: Stated complaint: POSS STREP THROAT TONSILS SWOLLEN FEVER Other details as noted in HPI Constitutional: denies: chills, fever Eyes: denies: eye pain, eye discharge, vision change ENT: throat pain, congestion. denies: ear pain Respiratory: cough. denies: shortness of breath, wheezing Cardiovascular: denies: chest pain, palpitations Endocrine: no symptoms reported Gastrointestinal: denies: abdominal pain, nausea, diarrhea Genitourinary: denies: urgency, dysuria, discharge Musculoskeletal: denies: back pain, joint swelling, arthralgia Skin: denies: rash, lesions Neurological: denies: headache, weakness, paresthesias Psychiatric: denies: anxiety, depression Hematological/Lymphatic: denies: easy bleeding, easy bruising ED Past Medical Hx - Past Medical History Previous Medical History?: Yes Hx Hypertension: Yes Hx Heart Attack/AMI: No Hx Congestive Heart Failure: Yes (after is on no medication) Hx Diabetes: No Hx Liver Disease: No Hx Renal Disease: No Hx Asthma: No Hx COPD: No Hx HIV: No Additional medical history: crohns - Surgical History Past Surgical History?: Yes Hx Cholecystectomy: Yes - Social History Smoking Status: Never Smoker - Medications Home Medications: Home Medications Medication Instructions Recorded Confirmed Last Taken Type Amoxicillin [Trimox CAP] 500 mg PO BID #20 capsule 08/27/19 Unknown Rx Prednisone [predniSONE 10 mg 10 mg PO .TAPER #1 tab.ds.pk 08/27/19 Unknown Rx (6-Day Pack, 21 Tabs)] amLODIPine 10 mg PO DAILY #30 tab 08/27/19 Unknown Rx Ibuprofen [Motrin] 800 mg PO Q8HR PRN #20 tablet 11/13/19 Unknown Rx Lidocaine Viscous 2% 10 ml PO Q6H PRN #120 ml 11/13/19 Unknown Rx methylPREDNISolone [Medrol 4MG 4 mg PO DAILY #21 tab.ds.pk 11/13/19 Unknown Rx DOSEPAK (21 tabs)] ED Physical Exam - General Limitations: No Limitations General appearance: alert, in no apparent distress - Head Head exam: Present: atraumatic, normocephalic, normal inspection - Eye Eye exam: Present: normal appearance, PERRL, EOMI Pupils: Present: normal accommodation - ENT ENT exam: Present: normal exam, mucous membranes moist, TM's normal bilaterally, normal external ear exam, other (Erythematous oropharynx and tonsils with exudates) - Neck Neck exam: Present: normal inspection, full ROM, lymphadenopathy - Respiratory Respiratory exam: Present: normal lung sounds bilaterally. Absent: respiratory distress, wheezes, rales, rhonchi, chest wall tenderness, accessory muscle use, decreased breath sounds - Cardiovascular Cardiovascular Exam: Present: regular rate, normal rhythm, normal heart sounds. Absent: systolic murmur, diastolic murmur, rubs, gallop - GI/Abdominal GI/Abdominal exam: Present: soft, normal bowel sounds. Absent: tenderness, guarding - Extremities Exam Extremities exam: Present: normal inspection, full ROM, normal capillary refill - Back Exam Back exam: Present: normal inspection, full ROM. Absent: tenderness, CVA tenderness (R), CVA tenderness (L), muscle spasm, paraspinal tenderness - Neurological Exam Neurological exam: Present: alert, oriented X3, CN II-XII intact, normal gait, reflexes normal - Psychiatric Psychiatric exam: Present: normal affect, normal mood - Skin Skin exam: Present: warm, dry, intact, normal color. Absent: rash ED Medical Decision Making - Medical Decision Making This is a 33-year-old female who presented to the ED with persistent sore throat with dysphagia for the last 3 days. Patient has a history of recurrent streptococcal pharyngitis. In the ED, patient is alert and oriented x3 and is not in distress. Patient was treated in the ED with Bicillin LA 1,200,000 units intramuscular injection, pain medications and Decadron. Patient was subsequently discharged home on medications for pain and steroids, and was advised to follow-up with her primary care physician in 7 to 10 days for reevaluation or return to the ED immediately if symptoms get worse. - Differential Diagnosis strep pharyngitis; Tonsillitis; URI; Bronchitis Critical care attestation.: If time is entered above; I have spent that time in minutes in the direct care of this critically ill patient, excluding procedure time. ED Disposition Clinical Impression: Acute streptococcal pharyngitis, Acute bacterial tonsillitis Disposition: TO HOME OR SELFCARE Is pt being admited?: No Does the pt Need Aspirin: No Condition: Stable Instructions: Tonsillitis (ED), Strep Throat (ED) Additional Instructions: Take medications with food, drink plenty of fluids and follow-up with your [facility] care physician in 7 to 10 days for reevaluation. Return to the ED immediately if symptoms get worse. Prescriptions: Lidocaine Viscous 2% 10 ml PO Q6H PRN #120 ml PRN Reason: Pain , Severe (7-10) methylPREDNISolone [Medrol 4MG DOSEPAK (21 tabs)] 4 mg PO DAILY #21 tab.ds.pk Ibuprofen [Motrin] 800 mg PO Q8HR PRN #20 tablet PRN Reason: Pain , Severe (7-10) Referrals: JOHN LEMONS [Primary Care Provider] - 3-5 Days Forms: Work/School Release Form(ED) Time of Disposition: 04:56 Print Language: UPPER SORBIAN
== END 2019-11-13 05:00 | disposition home or self-care (01) ==
LOC: ED 02:05
DX: J03.80 Acute tonsillitis due to other specified organisms (principal); B96.89 Other specified bacterial agents as the cause of diseases classified elsewhere; I11.0 Hypertensive heart disease with heart failure; I50.9 Heart failure, unspecified; Z90.49 Acquired absence of other specified parts of digestive tract; Z79.899 Other long term (current) drug therapy
CPT/HCPCS: 96372; 99281; J0561; J1100

== ENCOUNTER 2020-03-15 19:45 | Emergency (ER) | payer MEDICAID ==
--- NOTE | 2020-03-15 21:33 | Event Note ---
ED Screening Note ED Screening Note: generalized abd pain n/v/d no fever no blood or pus in the stool hx of Crohns has not taken her meds in 3 weeks This initial assessment/diagnostic orders/clinical plan/treatment(s) is/are subject to change based on patients health status, clinical progression and re- assessment by fellow clinical providers in the ED. Further treatment and workup at subsequent clinical providers discretion. Patient/guardian urged not to elope from the ED as their condition may be serious if not clinically assessed and managed. Initial orders include: labs, UA
[2020-03-15 21:58] LABS: Basophils # (Auto) 0.1 K/mm3 (0.0-0.1); Basophils % (Auto) 0.5 % (0.0-1.8); Eosinophils % (Auto) 0.1 % (0.0-4.3); Hemoglobin 13.8 gm/dl (10.1-14.3); Lymphocytes # (Auto) 2.3 K/mm3 (1.2-5.4); Lymphocytes % (Auto) 14.9 % (13.4-35.0); Mean Corpuscular HGB Conc 31 % (30-34); Mean Corpuscular Volume 78 fl (79-97); Monocytes # (Auto) 0.9 K/mm3 (0.0-0.8); Monocytes % (Auto) 5.8 % (0.0-7.3); Platelet Count 305 K/mm3 (140-440); Red Blood Count 5.61 M/mm3 (3.65-5.03); Red Cell Distribution Width 18.6 % (13.2-15.2)
[2020-03-15 22:25] LABS: Alanine Aminotransferase 16 units/L (7-56); Albumin 4.9 g/dL (3.9-5); BUN/Creatinine Ratio 14; Blood Urea Nitrogen 11 mg/dL (7-17); Calcium 9.5 mg/dL (8.4-10.2); Hemolysis Index 2
--- NOTE | 2020-03-16 00:02 | Cat Scan Report ---
CT OF THE ABDOMEN AND PELVIS WITH INTRAVENOUS CONTRAST INDICATION / CLINICAL INFORMATION: Abd pain with N/V/D, fever, and elevated WBC. Hx of Crohn's. TECHNIQUE: The patient received 100 cc Omnipaque [address] scans at this location are performed using CT dose reduction for ALARA by means of automated exposure control. COMPARISON: 08/04/19. FINDINGS: ABDOMEN: The gallbladder has been removed in the interim. The bile ducts, pancreas, liver, spleen, ad renal glands, kidneys and bowel demonstrate no significant abnormality. No adenopathy is seen. The yamilka ng bases are clear. PELVIS: There is a mildly inflamed diverticulum involving the proximal sigmoid colon posteriorly. I s ee no evidence of abscess, free air or bowel obstruction. The distal ureters and urinary bladder are normal. There are small uterine fibroids. I see no evidence of adnexal mass or free fluid. A normal a ppendix is present. I do not identify a hernia. No abnormal mass or fluid collection is seen. The bon es are normal. IMPRESSION: 1. Mild, acute uncomplicated proximal sigmoid diverticulitis. 2. No CT evidence of Crohn's disease or other significant abnormality. Signer Name: Raul Goode MD Signed: 03/15/2020 11:58 PM Workstation Name: [id number]
[2020-03-16 00:20] LABS: Bilirubin,Urine NEG (Negative); Blood,Urine NEG (Negative); Color,Urine Yellow (Yellow); Mucus,Urine 3+ /HPF; Urobilinogen,Urine < 2.0 mg/dL (<2.0)
[2020-03-16] MEDS ORDERED: MORPHINE 4 MG/1 ML INJ IV ONE (00:25)
[2020-03-16] MEDS ORDERED: diphenhydrAMINE 50 MG/ML VIAL IV ONE (00:25)
[2020-03-16] MEDS ORDERED: FAMOTIDINE 20 MG/2 ML INJ IV ONE (00:25)
[2020-03-16] MEDS ORDERED: METOCLOPRAMIDE 10 MG/2 ML INJ IV ONE (00:25)
[2020-03-16] MEDS ORDERED: levoFLOXacin 500 MG TAB PO ONE (00:26)
[2020-03-16] MEDS ORDERED: metroNIDAZOLE/NS 500 MG/100 ML 500 MG/100 ML BAG IV ONE (00:26)
[2020-03-16] MEDS ORDERED: SODIUM CHLORIDE 0.9% 1000 ML 1,000 ML IV ONE (00:26)
[2020-03-16] MEDS ORDERED: POTASSIUM CHLORIDE ER 20 MEQ TAB PO ONE (00:28)
--- NOTE | 2020-03-16 03:41 | Emergency Department Report ---
ED Abdominal Pain HPI - General Chief Complaint: Abdominal Pain Stated Complaint: CROHN'S FLAIR Source: patient Mode of arrival: Ambulatory Limitations: No Limitations - History of Present Illness Initial Comments: Patient is a 34-year-old -Cypriot female with a history of chronic Crohn's disease who presents to the ED with complaint of acute onset persistent nausea and vomiting and periumbilical abdominal pain that radiates to the left lower quadrant area for the last 4 days, worse in the last 2 days. Patient states that she has not been able to keep anything down especially in the last 2 days because of persistent nausea and vomiting and abdominal pain. Patient states that she suspected that the symptoms due to flare of her chronic Crohn's disease which she has not experienced in over 8 months. Patient denies diarrhea, fever, chills, chest pain, shortness of breath, sore throat, dizziness, syncope, hematemesis, hematochezia, diarrhea, dysuria, urinary f requency and urgency, cough or change in vision and vaginal discharge. MD Complaint: abdominal pain, other (nausea and vomiting) -: Sudden, days(s) (4) Location: periumbilical, LLQ Radiation: LLQ Migration to: no migration Severity: severe Severity scale (0 -10): 8 Quality: cramping, aching, sharp Consistency: constant Improves With: nothing Worsens With: vomiting Context: other (History of Crohn's disease) Associated Symptoms: denies other symptoms, nausea, vomiting, anorexia. denies: diarrhea, fever, chills, constipation, dysuria, hematemesis, hematochezia, melena, hematuria, syncope - Related Data LMP Date: 02/29/20 Previous Rx's Medication Instructions Recorded Last Taken Type Amoxicillin [Trimox CAP] 500 mg PO BID #20 capsule 08/27/19 Unknown Rx Prednisone [predniSONE 10 mg 10 mg PO .TAPER #1 tab.ds.pk 08/27/19 Unknown Rx (6-Day Pack, 21 Tabs)] amLODIPine 10 mg PO DAILY #30 tab 08/27/19 Unknown Rx Ibuprofen [Motrin] 800 mg PO Q8HR PRN #20 tablet 11/13/19 Unknown Rx Lidocaine Viscous 2% 10 ml PO Q6H PRN #120 ml 11/13/19 Unknown Rx methylPREDNISolone [Medrol 4MG 4 mg PO DAILY #21 tab.ds.pk 11/13/19 Unknown Rx DOSEPAK (21 tabs)] Ciprofloxacin HCl [Ciprofloxacin 500 mg PO Q12HR #20 tab 03/16/20 Unknown Rx TAB] Dicyclomine [Bentyl] 20 mg PO Q6H PRN #30 tablet 03/16/20 Unknown Rx Ketorolac [Toradol] 10 mg PO Q8H PRN #20 tablet 03/16/20 Unknown Rx Ondansetron [Zofran Odt] 4 mg PO Q6HR PRN #20 tab.rapdis 03/16/20 Unknown Rx metroNIDAZOLE [Flagyl] 500 mg PO Q8HR #30 tablet 03/16/20 Unknown Rx Allergies Allergy/AdvReac Type Severity Reaction Status Date / Time No Known Allergies Allergy Verified 03/14/19 15:21 ED Review of Systems ROS: Stated complaint: CROHN'S FLAIR Other details as noted in HPI Constitutional: denies: chills, fever Eyes: denies: eye pain, eye discharge, vision change ENT: denies: ear pain, throat pain Respiratory: denies: cough, shortness of breath, wheezing Cardiovascular: denies: chest pain, palpitations Endocrine: no symptoms reported Gastrointestinal: abdominal pain, nausea, vomiting. denies: diarrhea Genitourinary: denies: urgency, dysuria, discharge Musculoskeletal: denies: back pain, joint swelling, arthralgia Skin: denies: rash, lesions Neurological: denies: headache, weakness, paresthesias Psychiatric: denies: anxiety, depression Hematological/Lymphatic: denies: easy bleeding, easy bruising ED Past Medical Hx - Past Medical History Previous Medical History?: Yes Hx Hypertension: Yes Hx Heart Attack/AMI: No Hx Congestive Heart Failure: Yes (after is on no medication) Hx Diabetes: No Hx Liver Disease: No Hx Renal Disease: No Hx Asthma: No Hx COPD: No Hx HIV: No Additional medical history: crohns - Surgical History Past Surgical History?: Yes Hx Cholecystectomy: Yes - Social History Smoking Status: Never Smoker Substance Use Type: None - Medications Home Medications: Home Medications Medication Instructions Recorded Confirmed Last Taken Type Amoxicillin [Trimox CAP] 500 mg PO BID #20 capsule 08/27/19 Unknown Rx Prednisone [predniSONE 10 mg 10 mg PO .TAPER #1 tab.ds.pk 08/27/19 Unknown Rx (6-Day Pack, 21 Tabs)] amLODIPine 10 mg PO DAILY #30 tab 08/27/19 Unknown Rx Ibuprofen [Motrin] 800 mg PO Q8HR PRN #20 tablet 11/13/19 Unknown Rx Lidocaine Viscous 2% 10 ml PO Q6H PRN #120 ml 11/13/19 Unknown Rx methylPREDNISolone [Medrol 4MG 4 mg PO DAILY #21 tab.ds.pk 11/13/19 Unknown Rx DOSEPAK (21 tabs)] Ciprofloxacin HCl [Ciprofloxacin 500 mg PO Q12HR #20 tab 03/16/20 Unknown Rx TAB] Dicyclomine [Bentyl] 20 mg PO Q6H PRN #30 tablet 03/16/20 Unknown Rx Ketorolac [Toradol] 10 mg PO Q8H PRN #20 tablet 03/16/20 Unknown Rx Ondansetron [Zofran Odt] 4 mg PO Q6HR PRN #20 tab.rapdis 03/16/20 Unknown Rx metroNIDAZOLE [Flagyl] 500 mg PO Q8HR #30 tablet 03/16/20 Unknown Rx ED Physical Exam - General Limitations: No Limitations General appearance: alert, in no apparent distress - Head Head exam: Present: atraumatic, normocephalic, normal inspection - Eye Eye exam: Present: normal appearance, PERRL, EOMI Pupils: Present: normal accommodation - ENT ENT exam: Present: normal exam, normal orophraynx, mucous membranes moist, TM's normal bilaterally, normal external ear exam - Neck Neck exam: Present: normal inspection, full ROM. Absent: tenderness, lymphadenopathy - Respiratory Respiratory exam: Present: normal lung sounds bilaterally. Absent: respiratory distress, wheezes, rales, rhonchi, chest wall tenderness, decreased breath sounds, prolonged expiratory - Cardiovascular Cardiovascular Exam: Present: regular rate, normal rhythm, normal heart sounds. Absent: systolic murmur, diastolic murmur, rubs, gallop - GI/Abdominal GI/Abdominal exam: Present: soft, tenderness (Palpable periumbilical and left lower quadrant tenderness, no guarding or rebound), normal bowel sounds. Absent: guarding, rebound - Extremities Exam Extremities exam: Present: normal inspection, full ROM, normal capillary refill - Back Exam Back exam: Present: normal inspection, full ROM. Absent: tenderness, CVA tenderness (R), CVA tenderness (L), muscle spasm, paraspinal tenderness, vertebral tenderness - Neurological Exam Neurological exam: Present: alert, oriented X3, CN II-XII intact, normal gait, reflexes normal - Psychiatric Psychiatric exam: Present: normal affect, normal mood - Skin Skin exam: Present: warm, dry, intact, normal color. Absent: rash ED Course Vital Signs 03/15/20 03/16/20 20:06 01:17 Temperature 99.1 F Pulse Rate 61 Respiratory 16 20 Rate Blood Pressure 205/100 O2 Sat by Pulse 100 Oximetry ED Medical Decision Making - Lab Data Result diagrams: 03/15/20 21:37 03/15/20 21:37 - Radiology Data Radiology results: report reviewed, image reviewed Findings [facility] [address] [place] [address] Cat Scan Report Signed Patient: MARBELLA CORDERO MR#: [id number] : 1985 Acct:[id number] Age/Sex: 34 / F ADM Date: 03/15/20 Loc: ED Attending Dr: Ordering Physician: TRUONG NIEVES Date of Service: 03/15/20 Procedure(s): CT abdomen pelvis w con Accession Number(s): [id number] cc: TRUONG NIEVES CT OF THE ABDOMEN AND PELVIS WITH INTRAVENOUS CONTRAST INDICATION / CLINICAL INFORMATION: Abd pain with N/V/D, fever, and elevated WBC. Hx of Crohn's. TECHNIQUE: The patient received 100 cc Omnipaque [address] scans at this location are performed using CT dose reduction for ALARA by means of automated exposure control. COMPARISON: 08/04/19. FINDINGS: ABDOMEN: The gallbladder has been removed in the interim. The bile ducts, pancreas, liver, spleen, adrenal glands, kidneys and bowel demonstrate no significant abnormality. No adenopathy is seen. The lung bases are clear. PELVIS: There is a mildly inflamed diverticulum involving the proximal sigmoid colon posteriorly. I see no evidence of abscess, free air or bowel obstruction. The distal ureters and urinary bladder are normal. There are small uterine fibroids. I see no evidence of adnexal mass or free fluid. A normal appendix is present. I do not identify a hernia. No abnormal mass or fluid collection is seen. The bones are normal. IMPRESSION: 1. Mild, acute uncomplicated proximal sigmoid diverticulitis. 2. No CT evidence of Crohn's disease or other significant abnormality. Signer Name: Raul Goode MD Signed: 03/15/2020 11:58 PM Workstation Name: [id number] Transcribed By: RT Dictated By: Raul Goode MD Electronically Authenticated By: Raul Goode MD Signed Date/Time: 03/15/202357 DD/ 51 TD/TT: - Medical Decision Making This is a 34-year-old -Cypriot female with a history of chronic Crohn's disease who presents to the ED with complaint of acute onset persistent nausea and vomiting and periumbilical abdominal pain that radiates to the left lower quadrant area for the last 4 days, worse in the last 2 days. Patient states that she has not been able to keep anything down especially in the last 2 days because of persistent nausea and vomiting and abdominal pain. Patient states that she suspected that the symptoms due to flare of her chronic Crohn's disease which she has not experienced in over 8 months. In the ED, patient is alert and oriented x3 and is not in distress. Patient was treated for nausea and vomiting as well as pain, patient also received antacids in the ED, as well as normal saline 1 L IV bolus x1. Abdomen pelvis CT scan with contrast shows mild, acute uncomplicated proximal sigmoid diverticulitis. No CT evidence of Crohn's disease or other significant abnormality. Lab test results were reviewed and showed acute leukocytosis of 15,800, hypokalemia of 3.1 mmol/L, and mild hyponatremia of 136 mmol/L. Urinalysis is unremarkable. Patient was also treated in the ED with Flagyl 500 mg IV x1 and Levaquin 500 mg p.o. x1. On reevaluation, patient's pain is well controlled medications. Patient has not had any nausea or vomiting after being treated with antiemetics and antacids. Patient was discharged home on oral antibiotics, pain medications and antiemetics. Patient was advised to follow-up with her primary care physician i n 5 to 7 days for reevaluation or return to the ED immediately if symptoms get worse. - Differential Diagnosis Appendicitis; Crohn's disease; colitis; diverticulitis; UTI; Ovarian cyst Critical care attestation.: If time is entered above; I have spent that time in minutes in the direct care of this critically ill patient, excluding procedure time. ED Disposition Clinical Impression: Nausea and vomiting in adult patient, Acute diverticulitis of intestine Abdominal pain Qualifiers: Abdominal location: left lower quadrant Qualified Code(s): R10.32 - Left lower quadrant pain Disposition: TO HOME OR SELFCARE Is pt being admited?: No Does the pt Need Aspirin: No Condition: Stable Instructions: Diverticulitis (ED), Acute Nausea and Vomiting (ED), Diverticulitis Diet (ED), Abdominal Pain (ED) Additional Instructions: Take medication with food, drink plenty of fluids and follow-up with your primary care physician in 7 to 10 days for reevaluation. Return to the ED immediately if symptoms get worse. Prescriptions: Dicyclomine [Bentyl] 20 mg PO Q6H PRN #30 tablet PRN Reason: Abdominal pain Ciprofloxacin HCl [Ciprofloxacin TAB] 500 mg PO Q12HR #20 tab metroNIDAZOLE [Flagyl] 500 mg PO Q8HR #30 tablet Ketorolac [Toradol] 10 mg PO Q8H PRN #20 tablet PRN Reason: Pain Ondansetron [Zofran Odt] 4 mg PO Q6HR PRN #20 tab.rapdis PRN Reason: Nausea Referrals: [facility] [Provider Group] - 3-5 Days [facility] [Outside] - 3-5 Days Forms: Work/School Release Form(ED) Time of Disposition: 03:41 Print Language: CANADIAN
[2020-03-16 04:57] VITALS: BP 155/87
== END 2020-03-16 04:58 | disposition home or self-care (01) ==
LOC: ED 19:45
DX: K57.90 Diverticulosis of intestine, part unspecified, without perforation or abscess without bleeding (principal); R10.32 Left lower quadrant pain; R11.2 Nausea with vomiting, unspecified; I11.0 Hypertensive heart disease with heart failure; I50.9 Heart failure, unspecified; Z90.49 Acquired absence of other specified parts of digestive tract; Z79.899 Other long term (current) drug therapy; Z79.1 Long term (current) use of non-steroidal anti-inflammatories (NSAID); Z79.2 Long term (current) use of antibiotics
CPT/HCPCS: 36415; 74177; 80053; 81001; 83690; 84703; 85025; 96365; 96366; 96375; 99284; J1200; J2270; J2765; J7030; Q9967